=== PATIENT | male | born 1940 | race Caucasian/White ===

== ENCOUNTER 2018-09-24 11:41 | Inpatient (IN) | payer MEDICARE, OTHER ==
[~2018-09-24] VITALS: Ht 182.9 cm; Wt 116.2 kg
--- NOTE | 2018-09-24 13:06 | RAD ---
CT HEAD AND CERVICAL SPINE without contrast Clinical indications: Head injury. COMPARISON: July 31, [address] Technique: Noncontrast axial cross sectional scanning of the head was performed. PQRS compliance Statement One or more of the following individualized dose reduction techniques were utilized for this study: 1. Automated exposure control 2. Adjustment of the mA and/or kV according to patient size 3. Use of iterative reconstruction technique Findings: No acute intracranial hemorrhage or midline shift or mass-effect or hydrocephalus or extra-axial fluid collection is seen. Mild bilateral periventricular white matter hypodensity is seen consistent with chronic small vessel ischemic disease in this age group. No skull fracture or pneumocephalus is seen. No opacification of the mastoid sinuses or the paranasal sinuses is seen. The maxillary sinuses are not completely seen in this study. Soft tissue swelling is seen within the posterior right parietal region. Impression: No acute intracranial abnormality is seen. NONCONTRAST CERVICAL SPINE CT TECHNIQUE: Noncontrast helical CT scanning of the cervical spine was performed. Multiplanar 2-D reconstructions were generated. FINDINGS: No acute fracture or discitis or lytic process is evident. Degenerative endplate spurring and disc space narrowing and degenerative facet arthropathy is seen throughout the cervical spine. No perching of facet joints is seen. IMPRESSION: No acute fracture. Degenerative cervical spondylosis. Electronically signed by: Donaldo Lanza MD (09/24/2018 1:01 PM) [place] [id number]
--- NOTE | 2018-09-24 13:11 | RAD ---
PQRS Compliance Statement: One or more of the following individualized dose reduction techniques were utilized for this examination: 1. Automated exposure control 2. Adjustment of the mA and/or kV according to patient size 3. Use of iterative reconstruction technique CT PELVIS WO CONTRAST Clinical Indication: FALL, pain Comparison: None. TECHNIQUE: Helical CT imaging of the pelvis is performed without IV contrast. Findings: There is lower lumbar facet hypertrophy. No acute hip fracture is seen. There is no acute pelvic fracture. There is degenerative arthropathy of the hips. Severe disc space narrowing of L5/S1. Small exophytic cyst lower pole right kidney. The appendix is normal. Urinary bladder is normal. Prostate is moderately enlarged. No pelvic free fluid. There are fat containing bilateral inguinal hernias. There are benign inguinal lymph nodes bilaterally. No acute intramuscular hematoma is identified. Subcutaneous fat of the lateral hips is partially outside of [id number]. IMPRESSION: No acute pelvic or hip fracture. Electronically signed by: Олег Rincon MD (09/24/2018 1:06 PM) [id number]
--- NOTE | 2018-09-24 13:16 | EKG ---
[facility] [address] [place] [address] Test Date: 2018-09-24 Test Time: 11:57:37 Pat Name: LINETTE CARDOZA Department: Room: Gender: M Director Corporate Communications: : 1940 Requested By: HIEN DURANT Order Number: [id number] Reading MD: Dariel Bui Measurements Intervals [place] Rate: 57 P: CT: QRS: -51 QRSD: 174 T: 21 QT: 462 QTc: 453 Interpretive Statements ATRIAL FLUTTER ABNORMAL LEFT AXIS DEVIATION LEFT ANTERIOR FASCICULAR BLOCK RIGHT BUNDLE BRANCH BLOCK ABNORMAL ECG Electronically Signed On 09-30-2018 9:33:15 [employer] by Dariel Bui
[2018-09-24 13:30] LABS: CALCIUM 8.8 mg/dL (8.5-10.1); CREATININE 0.7 mg/dL (0.7-1.3); GFR 109.1; POTASSIUM 4.1 mmol/L (3.5-5.1)
[2018-09-24 13:31] LABS: BASO % 1 % (0-3); EOS % 0 % (0-3); HEMATOCRIT 38.3 % (39.0-53.0); HEMOGLOBIN 12.4 g/dL (13.0-17.5); LYMPH # 0.3 x10^3/uL (1.0-4.8); LYMPH % 4 % (24-48); MEAN CORPUSCULAR HEMOGLOBIN 28 pg (25-35); MEAN CORPUSCULAR HGB CONC 32 g/dL (31-37); MEAN CORPUSCULAR VOLUME 88 fL (79-100); MONO # 0.3 x10^3/uL (0.0-1.1); MONO % 4 % (0-9); NEUT # 7.8 x10^3uL (1.8-7.7); NEUT % 92 % (31-73); PLATELET COUNT 186 x10^3/uL (140-400); RED BLOOD COUNT 4.37 x10^6/uL (4.30-5.70); RED CELL DISTRIBUTION WIDTH 14.2 % (11.5-14.5); WHITE BLOOD COUNT 8.5 x10^3/uL (4.0-11.0)
[2018-09-24 13:37] LABS: ALBUMIN 3.7 g/dL (3.4-5.0); DIRECT BILIRUBIN 0.2 mg/dL (0.0-0.2); TOTAL BILIRUBIN 0.7 mg/dL (0.2-1.0); TOTAL PROTEIN 6.8 g/dL (6.4-8.2)
[2018-09-24 14:11] LABS: % BANDS 1 % (0-9); % LYMPHS 6 % (24-48); % MONOS 3 % (0-10); % SEGS 90 % (35-66)
[2018-09-24 14:12] LABS: PLT ESTIMATE ADEQUATE (ADEQUATE)
[2018-09-24 15:40] LABS: BILIRUBIN,URINE NEGATIVE (NEG); CLARITY,URINE CLEAR; COLOR,URINE YELLOW; NITRITE,URINE NEGATIVE (NEG); PH,URINE 6.5; PROTEIN,URINE NEGATIVE (NEG-TRACE)
[2018-09-24 15:47] LABS: BACTERIA,URINE 0 /HPF (0-FEW); SQUAMOUS EPITHELIAL CELL,UR FEW /LPF
[2018-09-24] MEDS ORDERED: ONDANSETRON PF 4 MG/2 ML VIAL. IV PRN (17:45)
--- NOTE | 2018-09-24 19:24 | PHYS DOC ---
Past Medical History Past Medical History: Dementia, Diabetes-Type II, GERD, High Cholesterol, Hypertension, Other Additional Past Medical Histor: ALZHEIMER'S DISEASE Past Surgical History: Other Additional Past Surgical Histo: L FEMUR TUMOR/SKIN CA'S REMOVED Alcohol Use: Rarely Drug Use: None Adult General Chief Complaint Chief Complaint: MECHANICAL FALL HPI HPI 70-year-old male presented to the emergency department after falling in time last night. The patient was seen last night before bed around 10:00 which was last known well. He has a history of Alzheimer's diabetes and hypertension. His found him this morning on the floor unable to get up. He was awake and alert at that time. He is at baseline confused and unable to provide a good history. Review of systems is negative for chest pain shortness of breath abdominal pain hip pain. All other review of systems is negative unless otherwise noted in history of present illness. ED course: 30-year-old male presenting the emergency department after sustaining a fall. No obvious injuries on arrival. Vital signs are unremarkable. Baseline mental status with a normal neurologic exam otherwise. Head neck and CT of the pelvis were negative for acute fractures or dislocations. CBC shows mild anemia. Chemistry panel shows mild elevation in proBNP. Troponin is within range of normal. Urinalysis is negative for infection. Patient is deconditioned from chronic mental state. We will admit the patient for rehabilitation physical therapy and occupational therapy and placement. I spoke with Dr. Carbajal who accepts patient for admission. Review of Systems Review of Systems SEE ABOVE. Current Medications Current Medications Current Medications Medications (Trade) Dose Ordered Sig/Azam Start Time Stop Time Status Last Admin Dose Admin Ondansetron HCl (Zofran) 4 mg PRN Q8HRS PRN 09/24/18 17:45 09/25/18 17:44 Sodium Chloride 1,000 ml @ 100 mls/hr Q10H 09/24/18 17:37 09/25/18 17:36 Allergies Allergies Allergies Coded Allergies Type Severity Reaction Last Updated Verified morphine Allergy Intermediate 09/24/18 Yes Physical Exam Physical Exam SEE ABOVE Constitutional: Well developed, well nourished, no acute distress, non-toxic appearance. [] HENT: Normocephalic, atraumatic, bilateral external ears normal, oropharynx moist, no oral exudates, nose normal. [] Eyes: PERRLA, EOMI, conjunctiva normal, no discharge. [] Neck: Normal range of motion, no tenderness, supple, no stridor. [] Cardiovascular:Heart rate regular rhythm, no murmur [] Lungs & Thorax: Bilateral breath sounds clear to auscultation [] Abdomen: Bowel sounds normal, soft, no tenderness, no masses, no pulsatile masses. [] Skin: Warm, dry, no erythema, no rash. [] Back: No tenderness, no CVA tenderness. [] Extremities: No tenderness, no cyanosis, no clubbing, ROM intact, no edema. No pain with passive range of motion of the hips. Neurologic: Mental status: Awake not oriented which is baseline Cranial nerves: Extraocular movements intact, eyebrows marisol bilaterally, smile symmetric, uvula elevation nl, shoulder shrug intact bilaterally, tongue protrusion normal DTRs: 2+ Sensation: equal and normal in all extremities Strength: 5/5 in upper and lower extremities bilaterally Psychologic: Affect normal, judgement normal, mood normal. [] Current Patient Data Vital Signs Vital Signs Date Time Temp Pulse Resp B/P (MAP) Pulse Ox O2 Delivery O2 Flow Rate FiO2 09/24/18 11:41 97.8 54 20 166/73 (104) 98 Room Air 97.8 Lab Values Laboratory Tests Test 09/24/18 13:10 09/24/18 15:25 White Blood Count 8.5 x10^3/uL (4.0-11.0) Red Blood Count 4.37 x10^6/uL (4.30-5.70) Hemoglobin 12.4 g/dL (13.0-17.5) L Hematocrit 38.3 % (39.0-53.0) L Mean Corpuscular Volume 88 fL (79-100) Mean Corpuscular Hemoglobin 28 pg (25-35) Mean Corpuscular Hemoglobin Concent 32 g/dL (31-37) Red Cell Distribution Width 14.2 % (11.5-14.5) Platelet Count 186 x10^3/uL (140-400) Neutrophils (%) (Auto) 92 % (31-73) H Lymphocytes (%) (Auto) 4 % (24-48) L Monocytes (%) (Auto) 4 % (0-9) Eosinophils (%) (Auto) 0 % (0-3) Basophils (%) (Auto) 1 % (0-3) Neutrophils # (Auto) 7.8 x10^3uL (1.8-7.7) H Lymphocytes # (Auto) 0.3 x10^3/uL (1.0-4.8) L Monocytes # (Auto) 0.3 x10^3/uL (0.0-1.1) Eosinophils # (Auto) 0.0 x10^3/uL (0.0-0.7) Basophils # (Auto) 0.0 x10^3/uL (0.0-0.2) Segmented Neutrophils % 90 % (35-66) H Band Neutrophils % 1 % (0-9) Lymphocytes % 6 % (24-48) L Monocytes % 3 % (0-10) Platelet Estimate Adequate (ADEQUATE) Sodium Level 141 mmol/L (136-145) Potassium Level 4.1 mmol/L (3.5-5.1) Chloride Level 101 mmol/L (98-107) Carbon Dioxide Level 31 mmol/L (21-32) Anion Gap 9 (6-14) Blood Urea Nitrogen 14 mg/dL (8-26) Creatinine 0.7 mg/dL (0.7-1.3) Estimated GFR (Cockcroft-Gault) 109.1 Glucose Level 199 mg/dL (70-99) H Calcium Level 8.8 mg/dL (8.5-10.1) Total Bilirubin 0.7 mg/dL (0.2-1.0) Direct Bilirubin 0.2 mg/dL (0.0-0.2) Aspartate Amino Transferase (AST) 19 U/L (15-37) Alanine Aminotransferase (ALT) 20 U/L (16-63) Alkaline Phosphatase 83 U/L (46-116) Troponin I Quantitative 0.035 ng/mL (0.000-0.055) IB-Nvs-V-Type Natriuretic Peptide 1467 pg/mL (0-449) H Total Protein 6.8 g/dL (6.4-8.2) Albumin 3.7 g/dL (3.4-5.0) Lipase 98 U/L (73-393) Urine Collection Type Unknown Urine Color Yellow Urine Clarity Clear Urine pH 6.5 Urine Specific [place] 1.020 Urine Protein Negative mg/dL (NEG-TRACE) Urine Glucose (UA) 100 mg/dL (NEG) Urine Ketones (Stick) 40 mg/dL (NEG) Urine Blood Negative (NEG) Urine Nitrite Negative (NEG) Urine Bilirubin Negative (NEG) Urine Urobilinogen Dipstick 1.0 mg/dL (0.2 mg/dL) Urine Leukocyte Esterase Negative (NEG) Urine RBC 1-2 /HPF (0-2) Urine WBC 1-4 /HPF (0-4) Urine Squamous Epithelial Cells Few /LPF Urine Bacteria 0 /HPF (0-FEW) Urine Mucus Mod /LPF Laboratory Tests 09/24/18 13:10 Laboratory Tests 09/24/18 13:10 EKG EKG [] Radiology/Procedures Radiology/Procedures [] Course & Med Decision Making Course & Med Decision Making Pertinent Labs and Imaging studies reviewed. (See chart for details) [] Dragon Disclaimer Dragon Disclaimer This electronic medical record was generated, in whole or in part, using a voice recognition dictation system. Departure Departure Impression: Primary Impression: Fall Additional Impression: Generalized weakness Disposition: ADMITTED INPATIENT Admitting Physician: Other (riffel) Condition: STABLE Referrals: BELINDA FOX MD (PCP) Problem Qualifiers HIEN DURANT MD Sep 24, 2018 19:24
[2018-09-24] MEDS ORDERED: ASPI-630 PO (19:26)
[2018-09-24] MEDS ORDERED: DEXT1TAB3 PO (19:26)
[2018-09-24] MEDS ORDERED: OMEG1CAP6 PO (19:26)
[2018-09-24] MEDS ORDERED: BYSTOLIC5 MG PO (19:26)
[2018-09-24] MEDS ORDERED: METF500T16 PO (19:26)
[2018-09-24] MEDS ORDERED: LOSA100T14 PO (19:26)
[2018-09-24] MEDS ORDERED: LISI-130 PO (19:26)
[2018-09-24] MEDS ORDERED: MEMA10TA PO (19:26)
[2018-09-24] MEDS ORDERED: DOXA4TAB3 PO (19:26)
[2018-09-24] MEDS ORDERED: FINA5TAB4 PO (19:26)
[2018-09-24] MEDS ORDERED: MULT1TAB52 PO (19:26)
[2018-09-24] MEDS ORDERED: DONE10TA7 PO (19:26)
[2018-09-24] MEDS ORDERED: SERT100T PO (19:26)
[2018-09-24] MEDS ORDERED: LOSA-73 PO (19:26)
[2018-09-24] MEDS ORDERED: GLYB5TAB3 PO (19:26)
[2018-09-24] MEDS ORDERED: LORA1TAB PO (19:26)
--- NOTE | 2018-09-24 22:00 | NUR ---
The patient, LINETTE CARDOZA, 78 y/o, M admitted by LINNEA OCASIO MD, was given written information regarding hospital policies, unit procedures and contact persons. Valuables were checked and left with him.
[2018-09-24] MEDS: IV NORMAL SALINE 1000ML BAG 1,000 ML IV SCH (22:33)
[2018-09-24 22:34] VITALS: BP 193/75
[2018-09-24 22:36] VITALS: BP 193/75
--- NOTE | 2018-09-24 23:36 | PDOC1 ---
History and Physical Date of Admission Date of Admission DATE: 09/24/18 TIME: 23:34 Identification/Chief Complaint Chief Complaint Fall at home Source Source: Caregiver, Chart review, Patient History of Present Illness History of Present Illness 70-year-old male w/ PMHx HTN, DM, Alzheimer dementia presented to the ED after falling at home last night. The patient was seen last night before bed around 10:00pm. His found him this morning on the floor unable to get up. He was awake and alert at that time. He is at baseline confused and unable to provide any history. He is also accompanied by his PCP. Head neck and CT of the pelvis were negative for acute fractures or dislocations. CBC shows mild anemia. Chemistry panel shows mild elevation in proBNP. Troponin is within range of normal. Urinalysis is negative for infection. Abnormal telemetry noted and EKG performed notable for new onset atrial flutter at slow rate. His , bedside is distressed and upset. Past Medical History Cardiovascular: No pertinent hx, HTN Pulmonary: No pertinent hx CENTRAL NERVOUS SYSTEM: Dementia GI: No pertinent hx Heme/Onc: No pertinent hx Hepatobiliary: No pertinent hx Psych: Other (Alzheimer) Rheumatologic: No pertinent hx Infectious disease: No pertinent hx ENT: No pertinent hx Renal/: No pertinent hx Endocrine: Diabetes Dermatology: No pertinent hx Past Surgical History Past Surgical History: No pertinent history Family History Family History: Alzheimer's Disease, Diabetes, Hypertension Social History Smoke: No ALCOHOL: none Drugs: None Current Problem List Problem List Problems Medical Problems: (1) Fall Status: Acute (2) Generalized weakness Status: Acute Current Medications Current Medications Current Medications Ondansetron HCl (Zofran) 4 mg PRN Q8HRS PRN IV NAUSEA/VOMITING Last administered on 09/24/18at 22:33; Start 09/24/18 at 17:45; Stop 09/25/18 at 17:44 Sodium Chloride 1,000 ml @ 100 mls/hr Q10H IV Last administered on 09/24/18at 22:33; Start 09/24/18 at 17:37; Stop 09/25/18 at 17:36 Active Scripts Active Reported Coricidin Hbp Cough & Cold Tab (Dextromethorphan Hbr/Chlor-Mal) 1 Each Tablet 1 Each PO Aspirin 81 Mg Tab.chew 1 Tab PO HS Multivitamins (Multivitamin) 1 Each Tablet 1 Tab PO DAILY Fish Oil 1,000 Mg Capsule ([place]-3 Fatty Acids/Fish Oil) 1 Each Capsule 1 Each PO HS Losartan Potassium 100 Mg Tablet 100 Mg PO BID Losartan Potassium 50 Mg Tablet 50 Mg PO DAILY Zoloft (Sertraline Hcl) 100 Mg Tablet 1 Tab PO BID Zoloft (Sertraline Hcl) 100 Mg Tablet 100 Mg PO BID Finasteride 5 Mg Tablet 5 Mg PO HS Doxazosin Mesylate 4 Mg Tablet 4 Mg PO HS Namenda (Memantine Hcl) 10 Mg Tablet 10 Mg PO BID Donepezil Hcl 10 Mg Tablet 10 Mg PO HS Bystolic (Nebivolol) 5 Mg Tablet 5 Mg PO DAILY Glyburide 5 Mg Tablet 1 Tab PO BID Metformin Hcl 500 Mg Tablet 500 Mg PO BIDWMEALS Lisinopril 40 Mg Tablet 40 Mg PO BID Lorazepam 1 Mg Tablet 1 Tab PO TID Allergies Allergies: Coded Allergies: morphine (Verified Allergy, Intermediate, 09/24/18) ROS Review of System Unable to obtain due to dementia Physical Exam General: Alert, Cooperative, No acute distress HEENT: Atraumatic, PERRLA, EOMI, Mucous membr. moist/pink Lungs: Clear to auscultation, Normal air movement Heart: S1S2, irregularly irregular Abdomen: Normal bowel sounds, Soft, No tenderness, No hepatosplenomegaly, No masses Rectal Exam: not examined Extremities: No clubbing, No cyanosis, No edema, Normal pulses, No tenderness/ swelling Skin: No rashes, No breakdown, No significant lesion Neuro: Normal gait, Normal speech, Strength at 5/5 X4 ext, Normal tone, Sensation intact, Cranial nerves 3-12 NL, Reflexes 2+ Psych/Mental Status: Mood NL Vitals Vitals Vital Signs Date Time Temp Pulse Resp B/P (MAP) Pulse Ox O2 Delivery O2 Flow Rate FiO2 09/24/18 22:36 97.6 56 18 193/75 (114) 94 Room Air 97.6 Labs Labs Laboratory Tests Test 09/24/18 13:10 09/24/18 15:25 White Blood Count 8.5 x10^3/uL (4.0-11.0) Red Blood Count 4.37 x10^6/uL (4.30-5.70) Hemoglobin 12.4 g/dL (13.0-17.5) Hematocrit 38.3 % (39.0-53.0) Mean Corpuscular Volume 88 fL (79-100) Mean Corpuscular Hemoglobin 28 pg (25-35) Mean Corpuscular Hemoglobin Concent 32 g/dL (31-37) Red Cell Distribution Width 14.2 % (11.5-14.5) Platelet Count 186 x10^3/uL (140-400) Neutrophils (%) (Auto) 92 % (31-73) Lymphocytes (%) (Auto) 4 % (24-48) Monocytes (%) (Auto) 4 % (0-9) Eosinophils (%) (Auto) 0 % (0-3) Basophils (%) (Auto) 1 % (0-3) Neutrophils # (Auto) 7.8 x10^3uL (1.8-7.7) Lymphocytes # (Auto) 0.3 x10^3/uL (1.0-4.8) Monocytes # (Auto) 0.3 x10^3/uL (0.0-1.1) Eosinophils # (Auto) 0.0 x10^3/uL (0.0-0.7) Basophils # (Auto) 0.0 x10^3/uL (0.0-0.2) Segmented Neutrophils % 90 % (35-66) Band Neutrophils % 1 % (0-9) Lymphocytes % 6 % (24-48) Monocytes % 3 % (0-10) Platelet Estimate Adequate (ADEQUATE) Sodium Level 141 mmol/L (136-145) Potassium Level 4.1 mmol/L (3.5-5.1) Chloride Level 101 mmol/L (98-107) Carbon Dioxide Level 31 mmol/L (21-32) Anion Gap 9 (6-14) Blood Urea Nitrogen 14 mg/dL (8-26) Creatinine 0.7 mg/dL (0.7-1.3) Estimated GFR (Cockcroft-Gault) 109.1 Glucose Level 199 mg/dL (70-99) Calcium Level 8.8 mg/dL (8.5-10.1) Total Bilirubin 0.7 mg/dL (0.2-1.0) Direct Bilirubin 0.2 mg/dL (0.0-0.2) Aspartate Amino Transf (AST/SGOT) 19 U/L (15-37) Alanine Aminotransferase (ALT/SGPT) 20 U/L (16-63) Alkaline Phosphatase 83 U/L (46-116) Troponin I Quantitative 0.035 ng/mL (0.000-0.055) OQ-Jve-T-Type Natriuretic Peptide 1467 pg/mL (0-449) Total Protein 6.8 g/dL (6.4-8.2) Albumin 3.7 g/dL (3.4-5.0) Lipase 98 U/L (73-393) Urine Collection Type Unknown Urine Color Yellow Urine Clarity Clear Urine pH 6.5 Urine Specific [place] 1.020 Urine Protein Negative mg/dL (NEG-TRACE) Urine Glucose (UA) 100 mg/dL (NEG) Urine Ketones (Stick) 40 mg/dL (NEG) Urine Blood Negative (NEG) Urine Nitrite Negative (NEG) Urine Bilirubin Negative (NEG) Urine Urobilinogen Dipstick 1.0 mg/dL (0.2 mg/dL) Urine Leukocyte Esterase Negative (NEG) Urine RBC 1-2 /HPF (0-2) Urine WBC 1-4 /HPF (0-4) Urine Squamous Epithelial Cells Few /LPF Urine Bacteria 0 /HPF (0-FEW) Urine Mucus Mod /LPF Laboratory Tests Test 09/24/18 13:10 09/24/18 15:25 White Blood Count 8.5 x10^3/uL (4.0-11.0) Red Blood Count 4.37 x10^6/uL (4.30-5.70) Hemoglobin 12.4 g/dL (13.0-17.5) Hematocrit 38.3 % (39.0-53.0) Mean Corpuscular Volume 88 fL (79-100) Mean Corpuscular Hemoglobin 28 pg (25-35) Mean Corpuscular Hemoglobin Concent 32 g/dL (31-37) Red Cell Distribution Width 14.2 % (11.5-14.5) Platelet Count 186 x10^3/uL (140-400) Neutrophils (%) (Auto) 92 % (31-73) Lymphocytes (%) (Auto) 4 % (24-48) Monocytes (%) (Auto) 4 % (0-9) Eosinophils (%) (Auto) 0 % (0-3) Basophils (%) (Auto) 1 % (0-3) Neutrophils # (Auto) 7.8 x10^3uL (1.8-7.7) Lymphocytes # (Auto) 0.3 x10^3/uL (1.0-4.8) Monocytes # (Auto) 0.3 x10^3/uL (0.0-1.1) Eosinophils # (Auto) 0.0 x10^3/uL (0.0-0.7) Basophils # (Auto) 0.0 x10^3/uL (0.0-0.2) Segmented Neutrophils % 90 % (35-66) Band Neutrophils % 1 % (0-9) Lymphocytes % 6 % (24-48) Monocytes % 3 % (0-10) Platelet Estimate Adequate (ADEQUATE) Sodium Level 141 mmol/L (136-145) Potassium Level 4.1 mmol/L (3.5-5.1) Chloride Level 101 mmol/L (98-107) Carbon Dioxide Level 31 mmol/L (21-32) Anion Gap 9 (6-14) Blood Urea Nitrogen 14 mg/dL (8-26) Creatinine 0.7 mg/dL (0.7-1.3) Estimated GFR (Cockcroft-Gault) 109.1 Glucose Level 199 mg/dL (70-99) Calcium Level 8.8 mg/dL (8.5-10.1) Total Bilirubin 0.7 mg/dL (0.2-1.0) Direct Bilirubin 0.2 mg/dL (0.0-0.2) Aspartate Amino Transf (AST/SGOT) 19 U/L (15-37) Alanine Aminotransferase (ALT/SGPT) 20 U/L (16-63) Alkaline Phosphatase 83 U/L (46-116) Troponin I Quantitative 0.035 ng/mL (0.000-0.055) PF-Lej-I-Type Natriuretic Peptide 1467 pg/mL (0-449) Total Protein 6.8 g/dL (6.4-8.2) Albumin 3.7 g/dL (3.4-5.0) Lipase 98 U/L (73-393) Urine Collection Type Unknown Urine Color Yellow Urine Clarity Clear Urine pH 6.5 Urine Specific [place] 1.020 Urine Protein Negative mg/dL (NEG-TRACE) Urine Glucose (UA) 100 mg/dL (NEG) Urine Ketones (Stick) 40 mg/dL (NEG) Urine Blood Negative (NEG) Urine Nitrite Negative (NEG) Urine Bilirubin Negative (NEG) Urine Urobilinogen Dipstick 1.0 mg/dL (0.2 mg/dL) Urine Leukocyte Esterase Negative (NEG) Urine RBC 1-2 /HPF (0-2) Urine WBC 1-4 /HPF (0-4) Urine Squamous Epithelial Cells Few /LPF Urine Bacteria 0 /HPF (0-FEW) Urine Mucus Mod /LPF Images Images CT head - No acute intracranial abnormality is seen. VTE Prophylaxis Ordered VTE Prophylaxis Devices: No VTE Pharmacological Prophylaxi: Yes Assessment/Plan Assessment/Plan A/P: Vomiting - possibly secondary to eating multiple different foods, no other sick contacts, likely this was a toxic gastroenteritis. Nausea control Fall at home - negative trauma series. Could be secondary to newfound arrhythmia. Will consult PT/OT and cardiology. No focal neuro deficits Aflutter - new, rate control. With his fall he is high risk for anticoagulation. Will consult cardiology for further recs Alzheimer dementia - with his falls probably should consider stopping aricept. Namenda only. He is fairly progressed, nearly non-verbal, but still eating quite a bit. DM2 - will hold his metformin and glipizide while in house, change to insulin for now HTN - cont home meds, will watch closely, may be able to back off some considering his falls FEN - ADA diet PPX - SCDs DNR/DNI Inpatient for frequently falls at home and new cardiac arrhythmia. Will need at least 2 midnights of inpatient care and I suspect he will need skilled placement on discharge. LINNEA OCASIO MD Sep 24, 2018 23:36
[2018-09-24] MEDS ORDERED: DEXTROSE 50% 25 GM / 50ML DISP.SYRIN. IV PRN (23:45)
[2018-09-25 03:00] VITALS: BP 120/45
[2018-09-25 05:15] LABS: BASO % 0 % (0-3); EOS % 1 % (0-3); HEMATOCRIT 35.4 % (39.0-53.0); HEMOGLOBIN 11.6 g/dL (13.0-17.5); LYMPH # 0.9 x10^3/uL (1.0-4.8); LYMPH % 12 % (24-48); MEAN CORPUSCULAR HEMOGLOBIN 29 pg (25-35); MEAN CORPUSCULAR HGB CONC 33 g/dL (31-37); MEAN CORPUSCULAR VOLUME 87 fL (79-100); MONO # 0.4 x10^3/uL (0.0-1.1); MONO % 6 % (0-9); NEUT # 6.1 x10^3uL (1.8-7.7); NEUT % 82 % (31-73); PLATELET COUNT 181 x10^3/uL (140-400); RED BLOOD COUNT 4.05 x10^6/uL (4.30-5.70); RED CELL DISTRIBUTION WIDTH 14.2 % (11.5-14.5); WHITE BLOOD COUNT 7.5 x10^3/uL (4.0-11.0)
[2018-09-25 05:38] LABS: CALCIUM 8.9 mg/dL (8.5-10.1); CREATININE 0.7 mg/dL (0.7-1.3); GFR 109.1; POTASSIUM 3.6 mmol/L (3.5-5.1)
[2018-09-25] MEDS: INSULIN LISPRO 300 UNITS/3 ML INSULN.PEN. SQ SCH ×5 (05:40→21:00)
[2018-09-25 07:13] VITALS: BP 194/77
[2018-09-25] MEDS: IV NORMAL SALINE 1000ML BAG 1,000 ML IV SCH ×2 (08:03→17:15)
--- NOTE | 2018-09-25 08:14 | EKG ---
[facility] [address] [place] [address] Test Date: 2018-09-25 Test Time: 08:08:37 Pat Name: LINETTE CARDOZA Department: Room: 506 1 Gender: M Pet Groomer: : 1940 Requested By: JUN FAROOQ Order Number: [id number] Reading MD: Dariel Bui Measurements Intervals [place] Rate: 63 P: [place]: QRS: -50 QRSD: 172 T: 19 QT: 478 QTc: 493 Interpretive Statements SINUS RHYTHM VENTRICULAR PREMATURE COMPLEX(ES) ABNORMAL LEFT AXIS DEVIATION LEFT ANTERIOR FASCICULAR BLOCK RIGHT BUNDLE BRANCH BLOCK ABNORMAL ECG Electronically Signed On 09-30-2018 9:53:13 [employer] OPERATOR by Dariel Bui
[2018-09-25] MEDS: NYSTATIN TOPICAL POWDER 15GM BOTTLE. TP SCH ×2 (08:59→21:00)
[2018-09-25] MEDS ORDERED: METOPROLOL TART IMMED RELEASE 25 MG TABLET. PO SCH (09:00)
--- NOTE | 2018-09-25 10:17 | PDOC ---
PROGRESS NOTES Chief Complaint Chief Complaint nausea and Vomiting - improved weakness and debility, Fall at home - PT/OT Aflutter - new, rate control. With his fall he is high risk for anticoagulation. Will consult cardiology for further recs Alzheimer dementia - acute on chronic encephalopathy, confusion with symptoms DM2 - HTN - History of Present Illness History of Present Illness confused earlier calm now will try clear liquid diet discussed with 10:10 am Vitals Vitals Vital Signs Date Time Temp Pulse Resp B/P (MAP) Pulse Ox O2 Delivery O2 Flow Rate FiO2 09/25/18 08:00 Room Air 09/25/18 07:13 98.6 54 20 194/77 (116) 92.0 98.6 09/25/18 03:00 96 Physical Exam Physical Exam sleeping hard, easily aroused General: Alert, Cooperative, No acute distress Abdomen: Normal bowel sounds, Soft, No tenderness, No hepatosplenomegaly, No masses Extremities: No clubbing, No cyanosis, No edema, Normal pulses, No tenderness/ swelling Skin: No rashes, No breakdown, No significant lesion Labs LABS Laboratory Tests Test 09/24/18 13:10 09/24/18 15:25 09/25/18 00:40 09/25/18 04:50 White Blood Count 8.5 x10^3/uL (4.0-11.0) 7.5 x10^3/uL (4.0-11.0) Red Blood Count 4.37 x10^6/uL (4.30-5.70) 4.05 x10^6/uL (4.30-5.70) Hemoglobin 12.4 g/dL (13.0-17.5) 11.6 g/dL (13.0-17.5) Hematocrit 38.3 % (39.0-53.0) 35.4 % (39.0-53.0) Mean Corpuscular Volume 88 fL (79-100) 87 fL (79-100) Mean Corpuscular Hemoglobin 28 pg (25-35) 29 pg (25-35) Mean Corpuscular Hemoglobin Concent 32 g/dL (31-37) 33 g/dL (31-37) Red Cell Distribution Width 14.2 % (11.5-14.5) 14.2 % (11.5-14.5) Platelet Count 186 x10^3/uL (140-400) 181 x10^3/uL (140-400) Neutrophils (%) (Auto) 92 % (31-73) 82 % (31-73) Lymphocytes (%) (Auto) 4 % (24-48) 12 % (24-48) Monocytes (%) (Auto) 4 % (0-9) 6 % (0-9) Eosinophils (%) (Auto) 0 % (0-3) 1 % (0-3) Basophils (%) (Auto) 1 % (0-3) 0 % (0-3) Neutrophils # (Auto) 7.8 x10^3uL (1.8-7.7) 6.1 x10^3uL (1.8-7.7) Lymphocytes # (Auto) 0.3 x10^3/uL (1.0-4.8) 0.9 x10^3/uL (1.0-4.8) Monocytes # (Auto) 0.3 x10^3/uL (0.0-1.1) 0.4 x10^3/uL (0.0-1.1) Eosinophils # (Auto) 0.0 x10^3/uL (0.0-0.7) 0.0 x10^3/uL (0.0-0.7) Basophils # (Auto) 0.0 x10^3/uL (0.0-0.2) 0.0 x10^3/uL (0.0-0.2) Segmented Neutrophils % 90 % (35-66) Band Neutrophils % 1 % (0-9) Lymphocytes % 6 % (24-48) Monocytes % 3 % (0-10) Platelet Estimate Adequate (ADEQUATE) Sodium Level 141 mmol/L (136-145) 143 mmol/L (136-145) Potassium Level 4.1 mmol/L (3.5-5.1) 3.6 mmol/L (3.5-5.1) Chloride Level 101 mmol/L (98-107) 106 mmol/L (98-107) Carbon Dioxide Level 31 mmol/L (21-32) 31 mmol/L (21-32) Anion Gap 9 (6-14) 6 (6-14) Blood Urea Nitrogen 14 mg/dL (8-26) 13 mg/dL (8-26) Creatinine 0.7 mg/dL (0.7-1.3) 0.7 mg/dL (0.7-1.3) Estimated GFR (Cockcroft-Gault) 109.1 109.1 Glucose Level 199 mg/dL (70-99) 140 mg/dL (70-99) Calcium Level 8.8 mg/dL (8.5-10.1) 8.9 mg/dL (8.5-10.1) Total Bilirubin 0.7 mg/dL (0.2-1.0) Direct Bilirubin 0.2 mg/dL (0.0-0.2) Aspartate Amino Transf (AST/SGOT) 19 U/L (15-37) Alanine Aminotransferase (ALT/SGPT) 20 U/L (16-63) Alkaline Phosphatase 83 U/L (46-116) Troponin I Quantitative 0.035 ng/mL (0.000-0.055) TY-Cdv-[id number]-Type Natriuretic Peptide 1467 pg/mL (0-449) Total Protein 6.8 g/dL (6.4-8.2) Albumin 3.7 g/dL (3.4-5.0) Lipase 98 U/L (73-393) Urine Collection Type Unknown Urine Color Yellow Urine Clarity Clear Urine pH 6.5 Urine Specific [place] 1.020 Urine Protein Negative mg/dL (NEG-TRACE) Urine Glucose (UA) 100 mg/dL (NEG) Urine Ketones (Stick) 40 mg/dL (NEG) Urine Blood Negative (NEG) Urine Nitrite Negative (NEG) Urine Bilirubin Negative (NEG) Urine Urobilinogen Dipstick 1.0 mg/dL (0.2 mg/dL) Urine Leukocyte Esterase Negative (NEG) Urine RBC 1-2 /HPF (0-2) Urine WBC 1-4 /HPF (0-4) Urine Squamous Epithelial Cells Few /LPF Urine Bacteria 0 /HPF (0-FEW) Urine Mucus Mod /LPF Glucose (Fingerstick) 128 mg/dL (70-99) Test 09/25/18 05:37 Glucose (Fingerstick) 115 mg/dL (70-99) Review of Systems Review of Systems calm sleepy, Assessment and Plan Assessmemt and Plan Problems Medical Problems: (1) Fall Status: Acute (2) Generalized weakness Status: Acute Comment Review of Relevant I have reviewed the following items randolph (where applicable) has been applied. Labs Laboratory Tests Test 09/24/18 13:10 09/24/18 15:25 09/25/18 00:40 09/25/18 04:50 White Blood Count 8.5 x10^3/uL (4.0-11.0) 7.5 x10^3/uL (4.0-11.0) Red Blood Count 4.37 x10^6/uL (4.30-5.70) 4.05 x10^6/uL (4.30-5.70) Hemoglobin 12.4 g/dL (13.0-17.5) 11.6 g/dL (13.0-17.5) Hematocrit 38.3 % (39.0-53.0) 35.4 % (39.0-53.0) Mean Corpuscular Volume 88 fL (79-100) 87 fL (79-100) Mean Corpuscular Hemoglobin 28 pg (25-35) 29 pg (25-35) Mean Corpuscular Hemoglobin Concent 32 g/dL (31-37) 33 g/dL (31-37) Red Cell Distribution Width 14.2 % (11.5-14.5) 14.2 % (11.5-14.5) Platelet Count 186 x10^3/uL (140-400) 181 x10^3/uL (140-400) Neutrophils (%) (Auto) 92 % (31-73) 82 % (31-73) Lymphocytes (%) (Auto) 4 % (24-48) 12 % (24-48) Monocytes (%) (Auto) 4 % (0-9) 6 % (0-9) Eosinophils (%) (Auto) 0 % (0-3) 1 % (0-3) Basophils (%) (Auto) 1 % (0-3) 0 % (0-3) Neutrophils # (Auto) 7.8 x10^3uL (1.8-7.7) 6.1 x10^3uL (1.8-7.7) Lymphocytes # (Auto) 0.3 x10^3/uL (1.0-4.8) 0.9 x10^3/uL (1.0-4.8) Monocytes # (Auto) 0.3 x10^3/uL (0.0-1.1) 0.4 x10^3/uL (0.0-1.1) Eosinophils # (Auto) 0.0 x10^3/uL (0.0-0.7) 0.0 x10^3/uL (0.0-0.7) Basophils # (Auto) 0.0 x10^3/uL (0.0-0.2) 0.0 x10^3/uL (0.0-0.2) Segmented Neutrophils % 90 % (35-66) Band Neutrophils % 1 % (0-9) Lymphocytes % 6 % (24-48) Monocytes % 3 % (0-10) Platelet Estimate Adequate (ADEQUATE) Sodium Level 141 mmol/L (136-145) 143 mmol/L (136-145) Potassium Level 4.1 mmol/L (3.5-5.1) 3.6 mmol/L (3.5-5.1) Chloride Level 101 mmol/L (98-107) 106 mmol/L (98-107) Carbon Dioxide Level 31 mmol/L (21-32) 31 mmol/L (21-32) Anion Gap 9 (6-14) 6 (6-14) Blood Urea Nitrogen 14 mg/dL (8-26) 13 mg/dL (8-26) Creatinine 0.7 mg/dL (0.7-1.3) 0.7 mg/dL (0.7-1.3) Estimated GFR (Cockcroft-Gault) 109.1 109.1 Glucose Level 199 mg/dL (70-99) 140 mg/dL (70-99) Calcium Level 8.8 mg/dL (8.5-10.1) 8.9 mg/dL (8.5-10.1) Total Bilirubin 0.7 mg/dL (0.2-1.0) Direct Bilirubin 0.2 mg/dL (0.0-0.2) Aspartate Amino Transf (AST/SGOT) 19 U/L (15-37) Alanine Aminotransferase (ALT/SGPT) 20 U/L (16-63) Alkaline Phosphatase 83 U/L (46-116) Troponin I Quantitative 0.035 ng/mL (0.000-0.055) SK-Nlb-K-Type Natriuretic Peptide 1467 pg/mL (0-449) Total Protein 6.8 g/dL (6.4-8.2) Albumin 3.7 g/dL (3.4-5.0) Lipase 98 U/L (73-393) Urine Collection Type Unknown Urine Color Yellow Urine Clarity Clear Urine pH 6.5 Urine Specific [place] 1.020 Urine Protein Negative mg/dL (NEG-TRACE) Urine Glucose (UA) 100 mg/dL (NEG) Urine Ketones (Stick) 40 mg/dL (NEG) Urine Blood Negative (NEG) Urine Nitrite Negative (NEG) Urine Bilirubin Negative (NEG) Urine Urobilinogen Dipstick 1.0 mg/dL (0.2 mg/dL) Urine Leukocyte Esterase Negative (NEG) Urine RBC 1-2 /HPF (0-2) Urine WBC 1-4 /HPF (0-4) Urine Squamous Epithelial Cells Few /LPF Urine Bacteria 0 /HPF (0-FEW) Urine Mucus Mod /LPF Glucose (Fingerstick) 128 mg/dL (70-99) Test 09/25/18 05:37 Glucose (Fingerstick) 115 mg/dL (70-99) Laboratory Tests Test 09/24/18 13:10 09/24/18 15:25 09/25/18 00:40 09/25/18 04:50 White Blood Count 8.5 x10^3/uL (4.0-11.0) 7.5 x10^3/uL (4.0-11.0) Red Blood Count 4.37 x10^6/uL (4.30-5.70) 4.05 x10^6/uL (4.30-5.70) Hemoglobin 12.4 g/dL (13.0-17.5) 11.6 g/dL (13.0-17.5) Hematocrit 38.3 % (39.0-53.0) 35.4 % (39.0-53.0) Mean Corpuscular Volume 88 fL (79-100) 87 fL (79-100) Mean Corpuscular Hemoglobin 28 pg (25-35) 29 pg (25-35) Mean Corpuscular Hemoglobin Concent 32 g/dL (31-37) 33 g/dL (31-37) Red Cell Distribution Width 14.2 % (11.5-14.5) 14.2 % (11.5-14.5) Platelet Count 186 x10^3/uL (140-400) 181 x10^3/uL (140-400) Neutrophils (%) (Auto) 92 % (31-73) 82 % (31-73) Lymphocytes (%) (Auto) 4 % (24-48) 12 % (24-48) Monocytes (%) (Auto) 4 % (0-9) 6 % (0-9) Eosinophils (%) (Auto) 0 % (0-3) 1 % (0-3) Basophils (%) (Auto) 1 % (0-3) 0 % (0-3) Neutrophils # (Auto) 7.8 x10^3uL (1.8-7.7) 6.1 x10^3uL (1.8-7.7) Lymphocytes # (Auto) 0.3 x10^3/uL (1.0-4.8) 0.9 x10^3/uL (1.0-4.8) Monocytes # (Auto) 0.3 x10^3/uL (0.0-1.1) 0.4 x10^3/uL (0.0-1.1) Eosinophils # (Auto) 0.0 x10^3/uL (0.0-0.7) 0.0 x10^3/uL (0.0-0.7) Basophils # (Auto) 0.0 x10^3/uL (0.0-0.2) 0.0 x10^3/uL (0.0-0.2) Segmented Neutrophils % 90 % (35-66) Band Neutrophils % 1 % (0-9) Lymphocytes % 6 % (24-48) Monocytes % 3 % (0-10) Platelet Estimate Adequate (ADEQUATE) Sodium Level 141 mmol/L (136-145) 143 mmol/L (136-145) Potassium Level 4.1 mmol/L (3.5-5.1) 3.6 mmol/L (3.5-5.1) Chloride Level 101 mmol/L (98-107) 106 mmol/L (98-107) Carbon Dioxide Level 31 mmol/L (21-32) 31 mmol/L (21-32) Anion Gap 9 (6-14) 6 (6-14) Blood Urea Nitrogen 14 mg/dL (8-26) 13 mg/dL (8-26) Creatinine 0.7 mg/dL (0.7-1.3) 0.7 mg/dL (0.7-1.3) Estimated GFR (Cockcroft-Gault) 109.1 109.1 Glucose Level 199 mg/dL (70-99) 140 mg/dL (70-99) Calcium Level 8.8 mg/dL (8.5-10.1) 8.9 mg/dL (8.5-10.1) Total Bilirubin 0.7 mg/dL (0.2-1.0) Direct Bilirubin 0.2 mg/dL (0.0-0.2) Aspartate Amino Transf (AST/SGOT) 19 U/L (15-37) Alanine Aminotransferase (ALT/SGPT) 20 U/L (16-63) Alkaline Phosphatase 83 U/L (46-116) Troponin I Quantitative 0.035 ng/mL (0.000-0.055) TR-Cil-M-Type Natriuretic Peptide 1467 pg/mL (0-449) Total Protein 6.8 g/dL (6.4-8.2) Albumin 3.7 g/dL (3.4-5.0) Lipase 98 U/L (73-393) Urine Collection Type Unknown Urine Color Yellow Urine Clarity Clear Urine pH 6.5 Urine Specific [place] 1.020 Urine Protein Negative mg/dL (NEG-TRACE) Urine Glucose (UA) 100 mg/dL (NEG) Urine Ketones (Stick) 40 mg/dL (NEG) Urine Blood Negative (NEG) Urine Nitrite Negative (NEG) Urine Bilirubin Negative (NEG) Urine Urobilinogen Dipstick 1.0 mg/dL (0.2 mg/dL) Urine Leukocyte Esterase Negative (NEG) Urine RBC 1-2 /HPF (0-2) Urine WBC 1-4 /HPF (0-4) Urine Squamous Epithelial Cells Few /LPF Urine Bacteria 0 /HPF (0-FEW) Urine Mucus Mod /LPF Glucose (Fingerstick) 128 mg/dL (70-99) Test 09/25/18 05:37 Glucose (Fingerstick) 115 mg/dL (70-99) Medications Current Medications Ondansetron HCl (Zofran) 4 mg PRN Q8HRS PRN IV NAUSEA/VOMITING Last administered on 09/24/18at 22:33; Start 09/24/18 at 17:45; Stop 09/25/18 at 17:44 Sodium Chloride 1,000 ml @ 100 mls/hr Q10H IV Last administered on 09/25/18at 08:03; Start 09/24/18 at 17:37; Stop 09/25/18 at 17:36 Aspirin (Children'S Aspirin) 81 mg HS PO ; Start 09/25/18 at 21:00 Doxazosin Mesylate (Cardura) 4 mg HS PO ; Start 09/25/18 at 21:00 Finasteride (Proscar) 5 mg HS PO ; Start 09/25/18 at 21:00 Lisinopril (Prinivil) 40 mg BID PO ; Start 09/25/18 at 09:00 Losartan Potassium (Cozaar) 50 mg DAILY PO ; Start 09/25/18 at 09:00 Fish Oil (Fish Oil) 1,000 mg HS PO ; Start 09/25/18 at 21:00 Donepezil HCl (Aricept) 10 mg HS PO ; Start 09/25/18 at 21:00 Memantine (Namenda) 10 mg BID PO ; Start 09/25/18 at 09:00 Multivitamins (Thera M Plus) 1 tab DAILY PO ; Start 09/25/18 at 09:00 Metoprolol Tartrate (Lopressor) 25 mg BID PO ; Start 09/25/18 at 09:00 Sertraline HCl (Zoloft) 100 mg BID PO ; Start 09/25/18 at 09:00 Insulin Human Lispro (HumaLOG) 0-7 UNITS Q6HRS SQ ; Start 09/25/18 at 00:00 Dextrose (Dextrose 50%-Water Syringe) 12.5 gm PRN Q15MIN PRN IV SEE COMMENTS; Start 09/24/18 at 23:45 Nystatin (Nystop) 1 bart BID TP Last administered on 09/25/18at 08:59; Start at 09:00 Active Scripts Active Reported Coricidin Hbp Cough & Cold Tab (Dextromethorphan Hbr/Chlor-Mal) 1 Each Tablet 1 Each PO Aspirin 81 Mg Tab.chew 1 Tab PO HS Multivitamins (Multivitamin) 1 Each Tablet 1 Tab PO DAILY Fish Oil 1,000 Mg Capsule ([place]-3 Fatty Acids/Fish Oil) 1 Each Capsule 1 Each PO HS Losartan Potassium 100 Mg Tablet 100 Mg PO BID Losartan Potassium 50 Mg Tablet 50 Mg PO DAILY Zoloft (Sertraline Hcl) 100 Mg Tablet 1 Tab PO BID Zoloft (Sertraline Hcl) 100 Mg Tablet 100 Mg PO BID Finasteride 5 Mg Tablet 5 Mg PO HS Doxazosin Mesylate 4 Mg Tablet 4 Mg PO HS Namenda (Memantine Hcl) 10 Mg Tablet 10 Mg PO BID Donepezil Hcl 10 Mg Tablet 10 Mg PO HS Bystolic (Nebivolol) 5 Mg Tablet 5 Mg PO DAILY Glyburide 5 Mg Tablet 1 Tab PO BID Metformin Hcl 500 Mg Tablet 500 Mg PO BIDWMEALS Lisinopril 40 Mg Tablet 40 Mg PO BID Lorazepam 1 Mg Tablet 1 Tab PO TID Vitals/I & O Vital Sign - Last 24 Hours 09/24/18 09/24/18 09/24/18 09/24/18 11:41 12:01 12:58 13:01 Temp 97.8 97.8 Pulse 54 54 52 50 Resp 19 B/P (MAP) 166/73 (104) Pulse Ox 98 93 94 O2 Delivery Room Air 09/24/18 09/24/18 09/24/18 09/24/18 13:31 14:01 14:31 15:01 Pulse 54 56 54 52 Resp 18 21 27 20 Pulse Ox 93 95 94 09/24/18 09/24/18 09/24/18 09/24/18 16:01 16:31 17:01 17:31 Pulse 60 54 62 52 Resp 19 18 27 18 Pulse Ox 95 95 95 95 09/24/18 09/24/18 09/24/18 09/24/18 18:01 21:27 22:00 22:34 Temp 97.6 97.6 Pulse 62 64 56 Resp 29 17 18 B/P (MAP) 193/75 (114) Pulse Ox 94 94 O2 Delivery Room Air Room Air 09/24/18 09/25/18 09/25/18 09/25/18 22:36 03:00 07:13 08:00 Temp 97.6 97.5 98.6 97.6 97.5 98.6 Pulse 56 54 54 Resp 18 54 20 B/P (MAP) 193/75 (114) 120/45 (70) 194/77 (116) Pulse Ox 94 96 O2 Delivery Room Air Room Air Room Air Room Air O2 Flow Rate 92.0 Intake and Output 09/24/18 09/24/18 09/25/18 15:01 23:01 07:01 Intake Total 0 ml Output Total 500 ml Balance -500 ml 0 ml SOPHIE GIBBONS MD Sep 25, 2018 10:17
[2018-09-25 10:29] VITALS: BP 161/66
[2018-09-25] MEDS: LISINOPRIL 20 MG TABLET PO SCH ×2 (12:07→20:51)
[2018-09-25] MEDS: MULTIVITAMIN with MINERAL TABLET. PO SCH (12:08)
[2018-09-25] MEDS: LOSARTAN POTASSIUM 50 MG TABLET. PO SCH (12:08)
[2018-09-25] MEDS: MEMANTINE 10 MG TABLET. PO SCH ×2 (12:08→20:43)
[2018-09-25] MEDS: SERTRALINE 50 MG TABLET. PO SCH ×2 (12:08→20:46)
--- NOTE | 2018-09-25 12:15 | DISCH ---
DISCHARGE DISCHARGE INFORMATION: DISCHARGE DATE: Sep 25, 2018 FINAL DIAGNOSIS Problems Medical Problems: (1) Fall Status: Acute (2) Generalized weakness Status: Acute CODE STATUS: Code Status: DNR/DNI [facility]: SNF STAY <30 DAYS: Yes POST DISCHARGE ORDERS: ACTIVITY ORDERS: Activity as tolerated WEIGHT BEARING STATUS: As tolerated DIET AFTER DISCHARGE: ADA TREATMENT/EQUIPMENT ORDERS: Physical Therapy For: Evalulation/Treatment Occupational Therapy For: Evaluation/Treatment DISCHARGE MEDICATIONS: Home Meds Reported Medications Dextromethorphan Hbr/Chlor-Mal (CORICIDIN HBP COUGH & COLD TAB) 1 Each Tablet, 1 EACH PO, TAB 09/24/18 Aspirin (ASPIRIN) 81 Mg Tab.chew, 1 TAB PO HS, #30 TAB 3 Refills 09/24/18 Multivitamin (MULTIVITAMINS) 1 Each Tablet, 1 TAB PO DAILY, #90 TAB 3 Refills 09/24/18 [place]-3 Fatty Acids/Fish Oil (FISH OIL 1,000 MG CAPSULE) 1 Each Capsule, 1 EACH PO HS, CAP 09/24/18 Losartan Potassium (LOSARTAN POTASSIUM) 100 Mg Tablet, 100 MG PO BID for HYPERTENSION, TAB 09/24/18 Losartan Potassium (LOSARTAN POTASSIUM) 50 Mg Tablet, 50 MG PO DAILY for HYPERTENSION, TAB 09/24/18 Sertraline Hcl (ZOLOFT) 100 Mg Tablet, 1 TAB PO BID, #30 TAB 5 Refills 09/24/18 Sertraline Hcl (ZOLOFT) 100 Mg Tablet, 100 MG PO BID for ANTI-DEPRESSANT, TAB 0 Refills 09/24/18 Finasteride (FINASTERIDE) 5 Mg Tablet, 5 MG PO HS, TAB 09/24/18 Doxazosin Mesylate (DOXAZOSIN MESYLATE) 4 Mg Tablet, 4 MG PO HS, TAB 09/24/18 Memantine Hcl (NAMENDA) 10 Mg Tablet, 10 MG PO BID, TAB 09/24/18 Donepezil Hcl (DONEPEZIL HCL) 10 Mg Tablet, 10 MG PO HS, TAB 09/24/18 Nebivolol Hcl (BYSTOLIC) 5 Mg Tablet, 5 MG PO DAILY, TAB 09/24/18 Glyburide (GLYBURIDE) 5 Mg Tablet, 1 TAB PO BID, #60 TAB 5 Refills 09/24/18 Metformin Hcl (METFORMIN HCL) 500 Mg Tablet, 500 MG PO BIDWMEALS for ANTI- DIABETIC, TAB 0 Refills 09/24/18 Lisinopril (LISINOPRIL) 40 Mg Tablet, 40 MG PO BID for FOR HYPERTENSION, #30 TAB 0 Refills 09/24/18 Lorazepam (LORAZEPAM) 1 Mg Tablet, 1 TAB PO TID, #90 TAB 09/24/18 SOPHIE GIBBONS MD Sep 25, 2018 12:15
--- NOTE | 2018-09-25 12:17 | NUR ---
Patient took FLD and medications without any difficulty swallowing. Will advance diet per order Dr. Vaz.
--- NOTE | 2018-09-25 13:53 | PDOC2 ---
CONSULT Date of Consult Date of Consult DATE: 09/25/18 TIME: 13:45 Reason for Consult Reason for Consult: Arrhythmias. Referring Physician Referring Physician: Dr. Guardado Identification/Chief Complaint Chief Complaint Patient is status post a fall Source Source: Caregiver, Chart review History of Present Illness Reason for Visit: The patient is a 78-year-old male who was seen in the emergency room secondary to a fall. He has a history of Alzheimer's dementia as well as hypertension, hyperlipidemia and diabetes. Workup including CT scanning and has shown no fractures secondary to the patient's fall. He is comfortable this morning. We' ve been asked to see the patient due to episodes of paroxysmal atrial fibrillation flutter. Strips available showed mainly sinus arrhythmias with PACs and some PVCs. Monitor this morning shows a sinus rhythm with a rate of 46. As noted above the patient appears comfortable. Past Medical History Cardiovascular: No pertinent hx, CHF, HTN Pulmonary: No pertinent hx CENTRAL NERVOUS SYSTEM: Dementia GI: No pertinent hx Heme/Onc: No pertinent hx Hepatobiliary: No pertinent hx Psych: Other (Alzheimer's) Rheumatologic: No pertinent hx Infectious disease: No pertinent hx ENT: No pertinent hx Renal/: No pertinent hx Endocrine: Diabetes Dermatology: No pertinent hx Past Surgical History Past Surgical History: No pertinent history Family History Family History: Alzheimer's Disease, Diabetes, Hypertension Social History No ALCOHOL: none Drugs: None Current Problem List Problem List Problems Medical Problems: (1) Fall Status: Acute (2) Generalized weakness Status: Acute Current Medications Current Medications Current Medications Ondansetron HCl (Zofran) 4 mg PRN Q8HRS PRN IV NAUSEA/VOMITING Last administered on 09/24/18at 22:33; Start 09/24/18 at 17:45; Stop 09/25/18 at 17:44 Sodium Chloride 1,000 ml @ 100 mls/hr Q10H IV Last administered on 09/25/18at 08:03; Start 09/24/18 at 17:37; Stop 09/25/18 at 17:36 Aspirin (Children'S Aspirin) 81 mg HS PO ; Start 09/25/18 at 21:00 Doxazosin Mesylate (Cardura) 4 mg HS PO ; Start 09/25/18 at 21:00 Finasteride (Proscar) 5 mg HS PO ; Start 09/25/18 at 21:00 Lisinopril (Prinivil) 40 mg BID PO Last administered on 09/25/18at 12:07; Start 09/25/18 at 09:00 Losartan Potassium (Cozaar) 50 mg DAILY PO Last administered on 09/25/18at 12:08 ; Start 09/25/18 at 09:00 Fish Oil (Fish Oil) 1,000 mg HS PO ; Start 09/25/18 at 21:00 Donepezil HCl (Aricept) 10 mg HS PO ; Start 09/25/18 at 21:00 Memantine (Namenda) 10 mg BID PO Last administered on 09/25/18at 12:08; Start at 09:00 Multivitamins (Thera M Plus) 1 tab DAILY PO Last administered on 09/25/18at 12: 08; Start 09/25/18 at 09:00 Metoprolol Tartrate (Lopressor) 25 mg BID PO ; Start 09/25/18 at 09:00; Stop at 10:29; Status DC Sertraline HCl (Zoloft) 100 mg BID PO Last administered on 09/25/18at 12:08; Start 09/25/18 at 09:00 Insulin Human Lispro (HumaLOG) 0-7 UNITS Q6HRS SQ ; Start 09/25/18 at 00:00 Dextrose (Dextrose 50%-Water Syringe) 12.5 gm PRN Q15MIN PRN IV SEE COMMENTS; Start 09/24/18 at 23:45 Nystatin (Nystop) 1 bart BID TP Last administered on 09/25/18at 08:59; Start at 09:00 Active Scripts Active Reported Coricidin Hbp Cough & Cold Tab (Dextromethorphan Hbr/Chlor-Mal) 1 Each Tablet 1 Each PO Aspirin 81 Mg Tab.chew 1 Tab PO HS Multivitamins (Multivitamin) 1 Each Tablet 1 Tab PO DAILY Fish Oil 1,000 Mg Capsule ([place]-3 Fatty Acids/Fish Oil) 1 Each Capsule 1 Each PO HS Losartan Potassium 100 Mg Tablet 100 Mg PO BID Losartan Potassium 50 Mg Tablet 50 Mg PO DAILY Zoloft (Sertraline Hcl) 100 Mg Tablet 1 Tab PO BID Zoloft (Sertraline Hcl) 100 Mg Tablet 100 Mg PO BID Finasteride 5 Mg Tablet 5 Mg PO HS Doxazosin Mesylate 4 Mg Tablet 4 Mg PO HS Namenda (Memantine Hcl) 10 Mg Tablet 10 Mg PO BID Donepezil Hcl 10 Mg Tablet 10 Mg PO HS Bystolic (Nebivolol) 5 Mg Tablet 5 Mg PO DAILY Glyburide 5 Mg Tablet 1 Tab PO BID Metformin Hcl 500 Mg Tablet 500 Mg PO BIDWMEALS Lisinopril 40 Mg Tablet 40 Mg PO BID Lorazepam 1 Mg Tablet 1 Tab PO TID Allergies Allergies: Coded Allergies: morphine (Verified Allergy, Intermediate, 09/24/18) ROS General: YES: Fatigue Physical Exam General: No acute distress HEENT: Atraumatic Lungs: Clear to auscultation Heart: Regular rate Abdomen: Normal bowel sounds Vitals VITALS Vital Signs Date Time Temp Pulse Resp B/P (MAP) Pulse Ox O2 Delivery O2 Flow Rate FiO2 09/25/18 12:08 54 161/66 09/25/18 10:29 97.9 18 Room Air 90.0 97.9 09/25/18 03:00 96 Labs Labs Laboratory Tests Test 09/24/18 13:10 09/24/18 15:25 09/25/18 00:40 09/25/18 04:50 White Blood Count 8.5 x10^3/uL (4.0-11.0) 7.5 x10^3/uL (4.0-11.0) Red Blood Count 4.37 x10^6/uL (4.30-5.70) 4.05 x10^6/uL (4.30-5.70) Hemoglobin 12.4 g/dL (13.0-17.5) 11.6 g/dL (13.0-17.5) Hematocrit 38.3 % (39.0-53.0) 35.4 % (39.0-53.0) Mean Corpuscular Volume 88 fL (79-100) 87 fL (79-100) Mean Corpuscular Hemoglobin 28 pg (25-35) 29 pg (25-35) Mean Corpuscular Hemoglobin Concent 32 g/dL (31-37) 33 g/dL (31-37) Red Cell Distribution Width 14.2 % (11.5-14.5) 14.2 % (11.5-14.5) Platelet Count 186 x10^3/uL (140-400) 181 x10^3/uL (140-400) Neutrophils (%) (Auto) 92 % (31-73) 82 % (31-73) Lymphocytes (%) (Auto) 4 % (24-48) 12 % (24-48) Monocytes (%) (Auto) 4 % (0-9) 6 % (0-9) Eosinophils (%) (Auto) 0 % (0-3) 1 % (0-3) Basophils (%) (Auto) 1 % (0-3) 0 % (0-3) Neutrophils # (Auto) 7.8 x10^3uL (1.8-7.7) 6.1 x10^3uL (1.8-7.7) Lymphocytes # (Auto) 0.3 x10^3/uL (1.0-4.8) 0.9 x10^3/uL (1.0-4.8) Monocytes # (Auto) 0.3 x10^3/uL (0.0-1.1) 0.4 x10^3/uL (0.0-1.1) Eosinophils # (Auto) 0.0 x10^3/uL (0.0-0.7) 0.0 x10^3/uL (0.0-0.7) Basophils # (Auto) 0.0 x10^3/uL (0.0-0.2) 0.0 x10^3/uL (0.0-0.2) Segmented Neutrophils % 90 % (35-66) Band Neutrophils % 1 % (0-9) Lymphocytes % 6 % (24-48) Monocytes % 3 % (0-10) Platelet Estimate Adequate (ADEQUATE) Sodium Level 141 mmol/L (136-145) 143 mmol/L (136-145) Potassium Level 4.1 mmol/L (3.5-5.1) 3.6 mmol/L (3.5-5.1) Chloride Level 101 mmol/L (98-107) 106 mmol/L (98-107) Carbon Dioxide Level 31 mmol/L (21-32) 31 mmol/L (21-32) Anion Gap 9 (6-14) 6 (6-14) Blood Urea Nitrogen 14 mg/dL (8-26) 13 mg/dL (8-26) Creatinine 0.7 mg/dL (0.7-1.3) 0.7 mg/dL (0.7-1.3) Estimated GFR (Cockcroft-Gault) 109.1 109.1 Glucose Level 199 mg/dL (70-99) 140 mg/dL (70-99) Calcium Level 8.8 mg/dL (8.5-10.1) 8.9 mg/dL (8.5-10.1) Total Bilirubin 0.7 mg/dL (0.2-1.0) Direct Bilirubin 0.2 mg/dL (0.0-0.2) Aspartate Amino Transf (AST/SGOT) 19 U/L (15-37) Alanine Aminotransferase (ALT/SGPT) 20 U/L (16-63) Alkaline Phosphatase 83 U/L (46-116) Troponin I Quantitative 0.035 ng/mL (0.000-0.055) [id number]-Type Natriuretic Peptide 1467 pg/mL (0-449) Total Protein 6.8 g/dL (6.4-8.2) Albumin 3.7 g/dL (3.4-5.0) Lipase 98 U/L (73-393) Urine Collection Type Unknown Urine Color Yellow Urine Clarity Clear Urine pH 6.5 Urine Specific [place] 1.020 Urine Protein Negative mg/dL (NEG-TRACE) Urine Glucose (UA) 100 mg/dL (NEG) Urine Ketones (Stick) 40 mg/dL (NEG) Urine Blood Negative (NEG) Urine Nitrite Negative (NEG) Urine Bilirubin Negative (NEG) Urine Urobilinogen Dipstick 1.0 mg/dL (0.2 mg/dL) Urine Leukocyte Esterase Negative (NEG) Urine RBC 1-2 /HPF (0-2) Urine WBC 1-4 /HPF (0-4) Urine Squamous Epithelial Cells Few /LPF Urine Bacteria 0 /HPF (0-FEW) Urine Mucus Mod /LPF Glucose (Fingerstick) 128 mg/dL (70-99) Test 09/25/18 05:37 Glucose (Fingerstick) 115 mg/dL (70-99) Laboratory Tests Test 09/24/18 15:25 09/25/18 00:40 09/25/18 04:50 09/25/18 05:37 Urine Collection Type Unknown Urine Color Yellow Urine Clarity Clear Urine pH 6.5 Urine Specific [place] 1.020 Urine Protein Negative mg/dL (NEG-TRACE) Urine Glucose (UA) 100 mg/dL (NEG) Urine Ketones (Stick) 40 mg/dL (NEG) Urine Blood Negative (NEG) Urine Nitrite Negative (NEG) Urine Bilirubin Negative (NEG) Urine Urobilinogen Dipstick 1.0 mg/dL (0.2 mg/dL) Urine Leukocyte Esterase Negative (NEG) Urine RBC 1-2 /HPF (0-2) Urine WBC 1-4 /HPF (0-4) Urine Squamous Epithelial Cells Few /LPF Urine Bacteria 0 /HPF (0-FEW) Urine Mucus Mod /LPF Glucose (Fingerstick) 128 mg/dL (70-99) 115 mg/dL (70-99) White Blood Count 7.5 x10^3/uL (4.0-11.0) Red Blood Count 4.05 x10^6/uL (4.30-5.70) Hemoglobin 11.6 g/dL (13.0-17.5) Hematocrit 35.4 % (39.0-53.0) Mean Corpuscular Volume 87 fL (79-100) Mean Corpuscular Hemoglobin 29 pg (25-35) Mean Corpuscular Hemoglobin Concent 33 g/dL (31-37) Red Cell Distribution Width 14.2 % (11.5-14.5) Platelet Count 181 x10^3/uL (140-400) Neutrophils (%) (Auto) 82 % (31-73) Lymphocytes (%) (Auto) 12 % (24-48) Monocytes (%) (Auto) 6 % (0-9) Eosinophils (%) (Auto) 1 % (0-3) Basophils (%) (Auto) 0 % (0-3) Neutrophils # (Auto) 6.1 x10^3uL (1.8-7.7) Lymphocytes # (Auto) 0.9 x10^3/uL (1.0-4.8) Monocytes # (Auto) 0.4 x10^3/uL (0.0-1.1) Eosinophils # (Auto) 0.0 x10^3/uL (0.0-0.7) Basophils # (Auto) 0.0 x10^3/uL (0.0-0.2) Sodium Level 143 mmol/L (136-145) Potassium Level 3.6 mmol/L (3.5-5.1) Chloride Level 106 mmol/L (98-107) Carbon Dioxide Level 31 mmol/L (21-32) Anion Gap 6 (6-14) Blood Urea Nitrogen 13 mg/dL (8-26) Creatinine 0.7 mg/dL (0.7-1.3) Estimated GFR (Cockcroft-Gault) 109.1 Glucose Level 140 mg/dL (70-99) Calcium Level 8.9 mg/dL (8.5-10.1) Assessment/Plan Assessment/Plan 1. Mechanical fall. CT scanning as above shows no fractures. We'll continue to monitor. Placement is being arranged for the patient. 2. Alzheimer's dementia. Continue present treatments. 3. Hypertension. Blood pressure is under reasonable control. 4. Diabetes mellitus. Medications as per the primary service. 5. Possible episodes of atrial fib flutter. Patient is in a sinus bradycardia today. Episodes overnight did include sinus arrhythmia was with PACs. At this time beta blockers have been held due to this patient's bradycardia. He is not a candidate for anticoagulation. At this time will continue on present treatments and continue on telemetry. Thank you for allowing us to participate in the care of your patient. JUN FAROOQ MD Sep 25, 2018 13:53
[2018-09-25 14:35] VITALS: BP 153/70
[2018-09-25 19:00] VITALS: BP 179/82
[2018-09-25] MEDS ORDERED: ONDANSETRON ODT 4 MG TAB.RAPDIS. PO PRN (19:30)
[2018-09-25] MEDS ORDERED: ONDANSETRON PF 4 MG/2 ML VIAL. IV PRN (19:30)
[2018-09-25] MEDS ORDERED: HALOPERIDOL 2 MG/ML ORAL.CONC. PO PRN (19:30)
[2018-09-25] MEDS ORDERED: ACETAMINOPHEN 500 MG TABLET PO PRN (19:30)
[2018-09-25] MEDS: OMEGA-3 FATTY ACIDS/FISH OIL 1,000 MG CAPSULE. PO SCH (20:42)
[2018-09-25] MEDS: FINASTERIDE 5 MG TABLET. PO SCH (20:42)
[2018-09-25] MEDS: DOXAZOSIN MESYLATE 4 MG TABLET. PO SCH (20:43)
[2018-09-25] MEDS: DONEPEZIL HCL 10 MG TABLET. PO SCH (20:43)
[2018-09-25] MEDS: ASPIRIN CHEWABLE 81 MG TABLET. PO SCH (20:47)
[2018-09-25 23:00] VITALS: BP 166/85
[2018-09-26 03:00] VITALS: BP 149/70
[2018-09-26 07:30] VITALS: BP 160/91
[2018-09-26] MEDS: INSULIN LISPRO 300 UNITS/3 ML INSULN.PEN. SQ SCH ×4 (07:30→20:39)
[2018-09-26] MEDS: LISINOPRIL 20 MG TABLET PO SCH ×2 (08:33→20:37)
[2018-09-26] MEDS: MEMANTINE 10 MG TABLET. PO SCH ×2 (08:33→20:37)
[2018-09-26] MEDS: SERTRALINE 50 MG TABLET. PO SCH ×2 (08:34→20:37)
[2018-09-26] MEDS: MULTIVITAMIN with MINERAL TABLET. PO SCH (08:34)
[2018-09-26] MEDS: LOSARTAN POTASSIUM 50 MG TABLET. PO SCH (08:36)
[2018-09-26] MEDS: NYSTATIN TOPICAL POWDER 15GM BOTTLE. TP SCH ×2 (08:38→20:49)
--- NOTE | 2018-09-26 09:19 | PDOC ---
PROGRESS NOTES Chief Complaint Chief Complaint nausea and Vomiting - improved weakness and debility, Fall at home - PT/OT Aflutter - new, rate control. With his fall he is high risk for anticoagulation. Will consult cardiology for further recs Alzheimer dementia - acute on chronic encephalopathy, confusion with symptoms DM2 - HTN - History of Present Illness History of Present Illness confused earlier calm now will try clear liquid diet plan [place] psych Vitals Vitals Vital Signs Date Time Temp Pulse Resp B/P (MAP) Pulse Ox O2 Delivery O2 Flow Rate FiO2 09/26/18 08:36 54 160/91 09/26/18 08:04 Room Air 09/26/18 07:30 97.9 16 94 97.9 09/25/18 10:29 90.0 Physical Exam Physical Exam sleeping hard, easily aroused General: No acute distress Heart: Regular rate Abdomen: Normal bowel sounds Extremities: No clubbing, No cyanosis, No edema, Normal pulses, No tenderness/ swelling Skin: No rashes, No breakdown, No significant lesion Labs LABS Laboratory Tests Test 09/25/18 11:24 09/25/18 16:27 09/25/18 20:24 09/26/18 08:18 Glucose (Fingerstick) 121 mg/dL (70-99) 112 mg/dL (70-99) 102 mg/dL (70-99) 116 mg/dL (70-99) Review of Systems Review of Systems has scratched his left ear, some bleeding no n/v Assessment and Plan Assessmemt and Plan Problems Medical Problems: (1) Fall Status: Acute (2) Generalized weakness Status: Acute Comment Review of Relevant I have reviewed the following items [place] (where applicable) has been applied. Labs Laboratory Tests Test 09/24/18 13:10 09/24/18 15:25 09/25/18 00:40 09/25/18 04:50 White Blood Count 8.5 x10^3/uL (4.0-11.0) 7.5 x10^3/uL (4.0-11.0) Red Blood Count 4.37 x10^6/uL (4.30-5.70) 4.05 x10^6/uL (4.30-5.70) Hemoglobin 12.4 g/dL (13.0-17.5) 11.6 g/dL (13.0-17.5) Hematocrit 38.3 % (39.0-53.0) 35.4 % (39.0-53.0) Mean Corpuscular Volume 88 fL (79-100) 87 fL (79-100) Mean Corpuscular Hemoglobin 28 pg (25-35) 29 pg (25-35) Mean Corpuscular Hemoglobin Concent 32 g/dL (31-37) 33 g/dL (31-37) Red Cell Distribution Width 14.2 % (11.5-14.5) 14.2 % (11.5-14.5) Platelet Count 186 x10^3/uL (140-400) 181 x10^3/uL (140-400) Neutrophils (%) (Auto) 92 % (31-73) 82 % (31-73) Lymphocytes (%) (Auto) 4 % (24-48) 12 % (24-48) Monocytes (%) (Auto) 4 % (0-9) 6 % (0-9) Eosinophils (%) (Auto) 0 % (0-3) 1 % (0-3) Basophils (%) (Auto) 1 % (0-3) 0 % (0-3) Neutrophils # (Auto) 7.8 x10^3uL (1.8-7.7) 6.1 x10^3uL (1.8-7.7) Lymphocytes # (Auto) 0.3 x10^3/uL (1.0-4.8) 0.9 x10^3/uL (1.0-4.8) Monocytes # (Auto) 0.3 x10^3/uL (0.0-1.1) 0.4 x10^3/uL (0.0-1.1) Eosinophils # (Auto) 0.0 x10^3/uL (0.0-0.7) 0.0 x10^3/uL (0.0-0.7) Basophils # (Auto) 0.0 x10^3/uL (0.0-0.2) 0.0 x10^3/uL (0.0-0.2) Segmented Neutrophils % 90 % (35-66) Band Neutrophils % 1 % (0-9) Lymphocytes % 6 % (24-48) Monocytes % 3 % (0-10) Platelet Estimate Adequate (ADEQUATE) Sodium Level 141 mmol/L (136-145) 143 mmol/L (136-145) Potassium Level 4.1 mmol/L (3.5-5.1) 3.6 mmol/L (3.5-5.1) Chloride Level 101 mmol/L (98-107) 106 mmol/L (98-107) Carbon Dioxide Level 31 mmol/L (21-32) 31 mmol/L (21-32) Anion Gap 9 (6-14) 6 (6-14) Blood Urea Nitrogen 14 mg/dL (8-26) 13 mg/dL (8-26) Creatinine 0.7 mg/dL (0.7-1.3) 0.7 mg/dL (0.7-1.3) Estimated GFR (Cockcroft-Gault) 109.1 109.1 Glucose Level 199 mg/dL (70-99) 140 mg/dL (70-99) Calcium Level 8.8 mg/dL (8.5-10.1) 8.9 mg/dL (8.5-10.1) Total Bilirubin 0.7 mg/dL (0.2-1.0) Direct Bilirubin 0.2 mg/dL (0.0-0.2) Aspartate Amino Transf (AST/SGOT) 19 U/L (15-37) Alanine Aminotransferase (ALT/SGPT) 20 U/L (16-63) Alkaline Phosphatase 83 U/L (46-116) Troponin I Quantitative 0.035 ng/mL (0.000-0.055) HB-Kpt-Y-Type Natriuretic Peptide 1467 pg/mL (0-449) Total Protein 6.8 g/dL (6.4-8.2) Albumin 3.7 g/dL (3.4-5.0) Lipase 98 U/L (73-393) Urine Collection Type Unknown Urine Color Yellow Urine Clarity Clear Urine pH 6.5 Urine Specific [place] 1.020 Urine Protein Negative mg/dL (NEG-TRACE) Urine Glucose (UA) 100 mg/dL (NEG) Urine Ketones (Stick) 40 mg/dL (NEG) Urine Blood Negative (NEG) Urine Nitrite Negative (NEG) Urine Bilirubin Negative (NEG) Urine Urobilinogen Dipstick 1.0 mg/dL (0.2 mg/dL) Urine Leukocyte Esterase Negative (NEG) Urine RBC 1-2 /HPF (0-2) Urine WBC 1-4 /HPF (0-4) Urine Squamous Epithelial Cells Few /LPF Urine Bacteria 0 /HPF (0-FEW) Urine Mucus Mod /LPF Glucose (Fingerstick) 128 mg/dL (70-99) Test 09/25/18 05:37 09/25/18 11:24 09/25/18 16:27 09/25/18 20:24 Glucose (Fingerstick) 115 mg/dL (70-99) 121 mg/dL (70-99) 112 mg/dL (70-99) 102 mg/dL (70-99) Test 09/26/18 08:18 Glucose (Fingerstick) 116 mg/dL (70-99) Laboratory Tests Test 09/25/18 11:24 09/25/18 16:27 09/25/18 20:24 09/26/18 08:18 Glucose (Fingerstick) 121 mg/dL (70-99) 112 mg/dL (70-99) 102 mg/dL (70-99) 116 mg/dL (70-99) Medications Current Medications Ondansetron HCl (Zofran) 4 mg PRN Q8HRS PRN IV NAUSEA/VOMITING Last administered on 09/24/18at 22:33; Start 09/24/18 at 17:45; Stop 09/25/18 at 17:44 ; Status DC Sodium Chloride 1,000 ml @ 100 mls/hr Q10H IV Last administered on 09/25/18at 17:15; Start 09/24/18 at 17:37; Stop 09/25/18 at 17:36; Status DC Aspirin (Children'S Aspirin) 81 mg HS PO Last administered on 09/25/18at 20:47; Start 09/25/18 at 21:00 Doxazosin Mesylate (Cardura) 4 mg HS PO Last administered on 09/25/18at 20:43; Start 09/25/18 at 21:00 Finasteride (Proscar) 5 mg HS PO Last administered on 09/25/18at 20:42; Start at 21:00 Lisinopril (Prinivil) 40 mg BID PO Last administered on 09/26/18at 08:33; Start 09/25/18 at 09:00 Losartan Potassium (Cozaar) 50 mg DAILY PO Last administered on 09/26/18 08:36 ; Start 09/25/18 at 09:00 Fish Oil (Fish Oil) 1,000 mg HS PO Last administered on 09/25/18at 20:42; Start 09/25/18 at 21:00 Donepezil HCl (Aricept) 10 mg HS PO Last administered on 09/25/18 20:43; Start 09/25/18 at 21:00 Memantine (Namenda) 10 mg BID PO Last administered on 09/26/18 08:33; Start at 09:00 Multivitamins (Thera M Plus) 1 tab DAILY PO Last administered on 09/26/18 08: 34; Start 09/25/18 at 09:00 Metoprolol Tartrate (Lopressor) 25 mg BID PO ; Start 09/25/18 at 09:00; Stop at 10:29; Status DC Sertraline HCl (Zoloft) 100 mg BID PO Last administered on 09/26/18 08:34; Start 09/25/18 at 09:00 Insulin Human Lispro (HumaLOG) 0-7 UNITS Q6HRS SQ ; Start 09/25/18 at 00:00; Stop 09/25/18 at 16:28; Status DC Dextrose (Dextrose 50%-Water Syringe) 12.5 gm PRN Q15MIN PRN IV SEE COMMENTS; Start 09/24/18 at 23:45 Nystatin (Nystop) 1 bart BID TP Last administered on 09/26/18at 08:38; Start at 09:00 Insulin Human Lispro (HumaLOG) 0-7 UNITS QIDACHS SQ ; Start 09/25/18 at 16:30 Acetaminophen (Tylenol) 500 mg PRN Q6HRS PRN PO MILD PAIN / TEMP; Start at 19:30 Ondansetron HCl (Zofran) 4 mg PRN Q6HRS PRN IV NAUSEA/VOMITING; Start 09/25/18 at 19:30 Ondansetron HCl (Zofran Odt) 4 mg PRN Q6HRS PRN PO NAUSEA/VOMITING; Start 09/25 at 19:30 Haloperidol Lactate (HALDOL 2mg ORAL CONC) 2 mg PRN Q6HRS PRN PO AGITATION/ PSYCHOSIS Last administered on 09/25/18at 20:43; Start 09/25/18 at 19:30 Lorazepam (Ativan) 2 mg PRN Q4HRS PRN IV ANXIETY / AGITATION Last administered on 09/25/18at 22:57; Start 09/25/18 at 19:30 Active Scripts Active Reported Coricidin Hbp Cough & Cold Tab (Dextromethorphan Hbr/Chlor-Mal) 1 Each Tablet 1 Each PO Aspirin 81 Mg Tab.chew 1 Tab PO HS Multivitamins (Multivitamin) 1 Each Tablet 1 Tab PO DAILY Fish Oil 1,000 Mg Capsule ([place]-3 Fatty Acids/Fish Oil) 1 Each Capsule 1 Each PO HS Losartan Potassium 100 Mg Tablet 100 Mg PO BID Losartan Potassium 50 Mg Tablet 50 Mg PO DAILY Zoloft (Sertraline Hcl) 100 Mg Tablet 1 Tab PO BID Zoloft (Sertraline Hcl) 100 Mg Tablet 100 Mg PO BID Finasteride 5 Mg Tablet 5 Mg PO HS Doxazosin Mesylate 4 Mg Tablet 4 Mg PO HS Namenda (Memantine Hcl) 10 Mg Tablet 10 Mg PO BID Donepezil Hcl 10 Mg Tablet 10 Mg PO HS Bystolic (Nebivolol) 5 Mg Tablet 5 Mg PO DAILY Glyburide 5 Mg Tablet 1 Tab PO BID Metformin Hcl 500 Mg Tablet 500 Mg PO BIDWMEALS Lisinopril 40 Mg Tablet 40 Mg PO BID Lorazepam 1 Mg Tablet 1 Tab PO TID Vitals/I & O Vital Sign - Last 24 Hours 09/25/18 09/25/18 09/25/18 09/25/18 10:29 12:07 12:08 14:35 Temp 97.9 97.9 97.9 97.9 Pulse 54 54 54 Resp 18 18 B/P (MAP) 161/66 (97) 161/66 161/66 153/70 (97) Pulse Ox 92 O2 Delivery Room Air Room Air O2 Flow Rate 90.0 09/25/18 09/25/18 09/25/18 09/25/18 19:00 19:37 20:43 20:51 Temp 98.2 98.2 Pulse 67 67 67 Resp 18 B/P (MAP) 179/82 (114) 179/82 179/82 Pulse Ox 97 O2 Delivery Room Air Room Air 09/25/18 09/26/18 09/26/18 09/26/18 23:00 03:00 07:30 08:04 Temp 97.8 97.9 97.8 97.9 Pulse 50 60 54 Resp 18 18 16 B/P (MAP) 166/85 (112) 149/70 (96) 160/91 (114) Pulse Ox 95 94 94 O2 Delivery Room Air Room Air Room Air Room Air 09/26/18 09/26/18 08:33 08:36 Pulse 54 54 B/P (MAP) 160/91 160/91 Intake and Output 09/25/18 09/25/18 09/26/18 15:01 23:01 07:01 Intake Total 1520 ml 1180 ml 1000 ml Balance 1520 ml 1180 ml 1000 ml SOPHIE GIBBONS MD Sep 26, 2018 09:19
[2018-09-26 10:52] VITALS: BP 153/75
[2018-09-26 15:00] VITALS: BP 148/79
--- NOTE | 2018-09-26 15:11 | PDOC ---
PROGRESS NOTES Subjective Subjective Patient seen and examined Objective Objective Vital Signs Date Time Temp Pulse Resp B/P (MAP) Pulse Ox O2 Delivery O2 Flow Rate FiO2 09/26/18 10:52 97.5 56 18 153/75 (101) 95 Room Air 97.5 09/25/18 10:29 90.0 Intake and Output 09/26/18 07:01 Intake Total 3700 ml Balance 3700 ml Intake Oral 700 ml IV Total 3000 ml # Voids 6 Physical Exam Abdomen: Normal bowel sounds Heart: Other (irregular rhythm) General: No acute distress Lungs: Other (minimally decreased breath sounds) Assessment Assessment Problems Medical Problems: (1) Fall Status: Acute (2) Generalized weakness Status: Acute 1. Mechanical fall. CT scanning as above shows no fractures. We'll continue to monitor. Placement is being arranged for the patient. 2. Alzheimer's dementia. Continue present treatments. 3. Hypertension. Blood pressure is under reasonable control. 4. Diabetes mellitus. Medications as per the primary service. 5. Possible episodes of atrial fib flutter. Patient had a sinus bradycardia yesterday. His rate is increased today. Due to his episodes of bradycardia will not start beta blockers unless his heart rate further elevates. He is not a candidate for anticoagulation. Comment Review of Relevant I have reviewed the following items randolph (where applicable) has been applied. Labs Laboratory Tests Test 09/24/18 15:25 09/25/18 00:40 09/25/18 04:50 09/25/18 05:37 Urine Collection Type Unknown Urine Color Yellow Urine Clarity Clear Urine pH 6.5 Urine Specific [place] 1.020 Urine Protein Negative mg/dL (NEG-TRACE) Urine Glucose (UA) 100 mg/dL (NEG) Urine Ketones (Stick) 40 mg/dL (NEG) Urine Blood Negative (NEG) Urine Nitrite Negative (NEG) Urine Bilirubin Negative (NEG) Urine Urobilinogen Dipstick 1.0 mg/dL (0.2 mg/dL) Urine Leukocyte Esterase Negative (NEG) Urine RBC 1-2 /HPF (0-2) Urine WBC 1-4 /HPF (0-4) Urine Squamous Epithelial Cells Few /LPF Urine Bacteria 0 /HPF (0-FEW) Urine Mucus Mod /LPF Glucose (Fingerstick) 128 mg/dL (70-99) 115 mg/dL (70-99) White Blood Count 7.5 x10^3/uL (4.0-11.0) Red Blood Count 4.05 x10^6/uL (4.30-5.70) Hemoglobin 11.6 g/dL (13.0-17.5) Hematocrit 35.4 % (39.0-53.0) Mean Corpuscular Volume 87 fL (79-100) Mean Corpuscular Hemoglobin 29 pg (25-35) Mean Corpuscular Hemoglobin Concent 33 g/dL (31-37) Red Cell Distribution Width 14.2 % (11.5-14.5) Platelet Count 181 x10^3/uL (140-400) Neutrophils (%) (Auto) 82 % (31-73) Lymphocytes (%) (Auto) 12 % (24-48) Monocytes (%) (Auto) 6 % (0-9) Eosinophils (%) (Auto) 1 % (0-3) Basophils (%) (Auto) 0 % (0-3) Neutrophils # (Auto) 6.1 x10^3uL (1.8-7.7) Lymphocytes # (Auto) 0.9 x10^3/uL (1.0-4.8) Monocytes # (Auto) 0.4 x10^3/uL (0.0-1.1) Eosinophils # (Auto) 0.0 x10^3/uL (0.0-0.7) Basophils # (Auto) 0.0 x10^3/uL (0.0-0.2) Sodium Level 143 mmol/L (136-145) Potassium Level 3.6 mmol/L (3.5-5.1) Chloride Level 106 mmol/L (98-107) Carbon Dioxide Level 31 mmol/L (21-32) Anion Gap 6 (6-14) Blood Urea Nitrogen 13 mg/dL (8-26) Creatinine 0.7 mg/dL (0.7-1.3) Estimated GFR (Cockcroft-Gault) 109.1 Glucose Level 140 mg/dL (70-99) Calcium Level 8.9 mg/dL (8.5-10.1) Test 09/25/18 11:24 09/25/18 16:27 09/25/18 20:24 09/26/18 08:18 Glucose (Fingerstick) 121 mg/dL (70-99) 112 mg/dL (70-99) 102 mg/dL (70-99) 116 mg/dL (70-99) Test 09/26/18 11:41 Glucose (Fingerstick) 107 mg/dL (70-99) Laboratory Tests Test 09/25/18 16:27 09/25/18 20:24 09/26/18 08:18 09/26/18 11:41 Glucose (Fingerstick) 112 mg/dL (70-99) 102 mg/dL (70-99) 116 mg/dL (70-99) 107 mg/dL (70-99) Medications Current Medications Ondansetron HCl (Zofran) 4 mg PRN Q8HRS PRN IV NAUSEA/VOMITING Last administered on 09/24/18 22:33; Start 09/24/18 at 17:45; Stop 09/25/18 at 17:44 ; Status DC Sodium Chloride 1,000 ml @ 100 mls/hr Q10H IV Last administered on 09/25/18at 17:15; Start 09/24/18 at 17:37; Stop 09/25/18 at 17:36; Status DC Aspirin (Children'S Aspirin) 81 mg HS PO Last administered on 09/25/18at 20:47; Start 09/25/18 at 21:00 Doxazosin Mesylate (Cardura) 4 mg HS PO Last administered on 09/25/18 20:43; Start 09/25/18 at 21:00 Finasteride (Proscar) 5 mg HS PO Last administered on 09/25/18at 20:42; Start at 21:00 Lisinopril (Prinivil) 40 mg BID PO Last administered on 09/26/18at 08:33; Start 09/25/18 at 09:00 Losartan Potassium (Cozaar) 50 mg DAILY PO Last administered on 09/26/18 08:36 ; Start 09/25/18 at 09:00 Fish Oil (Fish Oil) 1,000 mg HS PO Last administered on 09/25/18at 20:42; Start 09/25/18 at 21:00 Donepezil HCl (Aricept) 10 mg HS PO Last administered on 09/25/18at 20:43; Start 09/25/18 at 21:00 Memantine (Namenda) 10 mg BID PO Last administered on 09/26/18 08:33; Start at 09:00 Multivitamins (Thera M Plus) 1 tab DAILY PO Last administered on 09/26/18 08: 34; Start 09/25/18 at 09:00 Metoprolol Tartrate (Lopressor) 25 mg BID PO ; Start 09/25/18 at 09:00; Stop at 10:29; Status DC Sertraline HCl (Zoloft) 100 mg BID PO Last administered on 09/26/18at 08:34; Start 09/25/18 at 09:00 Insulin Human Lispro (HumaLOG) 0-7 UNITS Q6HRS SQ ; Start 09/25/18 at 00:00; Stop 09/25/18 at 16:28; Status DC Dextrose (Dextrose 50%-Water Syringe) 12.5 gm PRN Q15MIN PRN IV SEE COMMENTS; Start 09/24/18 at 23:45 Nystatin (Nystop) 1 bart BID TP Last administered on 09/26/18at 08:38; Start at 09:00 Insulin Human Lispro (HumaLOG) 0-7 UNITS QIDACHS SQ ; Start 09/25/18 at 16:30 Acetaminophen (Tylenol) 500 mg PRN Q6HRS PRN PO MILD PAIN / TEMP; Start at 19:30 Ondansetron HCl (Zofran) 4 mg PRN Q6HRS PRN IV NAUSEA/VOMITING; Start 09/25/18 at 19:30 Ondansetron HCl (Zofran Odt) 4 mg PRN Q6HRS PRN PO NAUSEA/VOMITING; Start 09/25 at 19:30 Haloperidol Lactate (HALDOL 2mg ORAL CONC) 2 mg PRN Q6HRS PRN PO AGITATION/ PSYCHOSIS Last administered on 09/25/18 20:43; Start 09/25/18 at 19:30 Lorazepam (Ativan) 2 mg PRN Q4HRS PRN IV ANXIETY / AGITATION Last administered on 09/25/18at 22:57; Start 09/25/18 at 19:30 Active Scripts Active Reported Coricidin Hbp Cough & Cold Tab (Dextromethorphan Hbr/Chlor-Mal) 1 Each Tablet 1 Each PO Aspirin 81 Mg Tab.chew 1 Tab PO HS Multivitamins (Multivitamin) 1 Each Tablet 1 Tab PO DAILY Fish Oil 1,000 Mg Capsule ([place]-3 Fatty Acids/Fish Oil) 1 Each Capsule 1 Each PO HS Losartan Potassium 100 Mg Tablet 100 Mg PO BID Losartan Potassium 50 Mg Tablet 50 Mg PO DAILY Zoloft (Sertraline Hcl) 100 Mg Tablet 1 Tab PO BID Zoloft (Sertraline Hcl) 100 Mg Tablet 100 Mg PO BID Finasteride 5 Mg Tablet 5 Mg PO HS Doxazosin Mesylate 4 Mg Tablet 4 Mg PO HS Namenda (Memantine Hcl) 10 Mg Tablet 10 Mg PO BID Donepezil Hcl 10 Mg Tablet 10 Mg PO HS Bystolic (Nebivolol) 5 Mg Tablet 5 Mg PO DAILY Glyburide 5 Mg Tablet 1 Tab PO BID Metformin Hcl 500 Mg Tablet 500 Mg PO BIDWMEALS Lisinopril 40 Mg Tablet 40 Mg PO BID Lorazepam 1 Mg Tablet 1 Tab PO TID Vitals/I & O Vital Sign - Last 24 Hours 09/25/18 09/25/18 09/25/18 09/25/18 19:00 19:37 20:43 20:51 Temp 98.2 98.2 Pulse 67 67 67 Resp 18 B/P (MAP) 179/82 (114) 179/82 179/82 Pulse Ox 97 O2 Delivery Room Air Room Air 09/25/18 09/26/18 09/26/18 09/26/18 23:00 03:00 07:30 08:04 Temp 97.8 97.9 97.8 97.9 Pulse 50 60 54 Resp 18 18 16 B/P (MAP) 166/85 (112) 149/70 (96) 160/91 (114) Pulse Ox 95 94 94 O2 Delivery Room Air Room Air Room Air Room Air 09/26/18 09/26/18 09/26/18 08:33 08:36 10:52 Temp 97.5 97.5 Pulse 54 54 56 Resp 18 B/P (MAP) 160/91 160/91 153/75 (101) Pulse Ox 95 O2 Delivery Room Air Intake and Output 09/25/18 09/25/18 09/26/18 15:01 23:01 07:01 Intake Total 1520 ml 1180 ml 1000 ml Balance 1520 ml 1180 ml 1000 ml JUN FAROOQ MD Sep 26, 2018 15:11
--- NOTE | 2018-09-26 16:37 | NUR ---
Patient watching TV, calm and cooperative. See nursing communication. 1:1 order discontinued. Patient's here visiting. Continue fall protocol, bed and personal alarm.
[2018-09-26 19:08] VITALS: BP 170/89
[2018-09-26] MEDS: OMEGA-3 FATTY ACIDS/FISH OIL 1,000 MG CAPSULE. PO SCH (20:36)
[2018-09-26] MEDS: DONEPEZIL HCL 10 MG TABLET. PO SCH (20:37)
[2018-09-26] MEDS: FINASTERIDE 5 MG TABLET. PO SCH (20:37)
[2018-09-26] MEDS: DOXAZOSIN MESYLATE 4 MG TABLET. PO SCH (20:38)
[2018-09-26] MEDS: ASPIRIN CHEWABLE 81 MG TABLET. PO SCH (20:38)
[2018-09-26 23:05] VITALS: BP 208/104
[2018-09-26] MEDS ORDERED: amLODIPine BESYLATE 10 MG TABLET PO ONE (23:30)
[2018-09-27] VITALS (8 sets, daily range): BP systolic 128–209; BP diastolic 68–90
[2018-09-27] MEDS: LORazepam 1 MG TABLET PO PRN ×3 (02:33→22:18)
[2018-09-27] MEDS: INSULIN LISPRO 300 UNITS/3 ML INSULN.PEN. SQ SCH ×4 (07:30→21:00)
[2018-09-27] MEDS: NYSTATIN TOPICAL POWDER 15GM BOTTLE. TP SCH ×2 (09:00→22:26)
[2018-09-27] MEDS: MULTIVITAMIN with MINERAL TABLET. PO SCH (10:25)
[2018-09-27] MEDS: LOSARTAN POTASSIUM 50 MG TABLET. PO SCH (10:25)
[2018-09-27] MEDS: SERTRALINE 50 MG TABLET. PO SCH ×2 (10:25→22:20)
[2018-09-27] MEDS: MEMANTINE 10 MG TABLET. PO SCH ×2 (10:25→22:20)
[2018-09-27] MEDS: LISINOPRIL 20 MG TABLET PO SCH ×2 (10:26→22:19)
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
--- NOTE | 2018-09-27 11:52 | PDOC ---
PROGRESS NOTES Chief Complaint Chief Complaint nausea and Vomiting - improved weakness and debility, Fall at home - PT/OT Aflutter - new, rate control. With his fall he is high risk for anticoagulation. Will consult cardiology for further recs Alzheimer dementia - acute on chronic encephalopathy, confusion with symptoms DM2 - Hypertension. Blood pressure is under fair control. History of Present Illness History of Present Illness confused earlier calm now will try clear liquid diet plan [facility] psych Vitals Vitals Vital Signs Date Time Temp Pulse Resp B/P (MAP) Pulse Ox O2 Delivery O2 Flow Rate FiO2 09/27/18 11:23 97.5 53 20 143/68 (93) 97 Room Air 97.5 Physical Exam Physical Exam easily aroused Eyes: PERRLA, EOMI, conjunctiva normal, no discharge. [] Neck: Normal range of motion, no tenderness, supple, no stridor. [] Cardiovascular:Heart rate regular rhythm, no murmur [] Lungs & Thorax: Bilateral breath sounds clear to auscultation [] Abdomen: Bowel sounds normal, soft, no tenderness, no masses, no pulsatile masses. [] Skin: Warm, dry, no erythema, no rash. [] Back: No tenderness, no CVA tenderness. [] Extremities: No tenderness, no cyanosis, no clubbing, ROM intact, no edema. No pain with passive range of motion of the hips. Neurologic: Awake not oriented , baseline General: Cooperative, No acute distress Heart: Other (irregular rhythm) Abdomen: Normal bowel sounds, Soft Extremities: No clubbing, No cyanosis, No edema, Normal pulses, No tenderness/ swelling Skin: No rashes, No breakdown, No significant lesion Labs LABS CT PELVIS WO CONTRAST Clinical Indication: FALL, pain Comparison: None. TECHNIQUE: Helical CT imaging of the pelvis is performed without IV contrast. Findings: There is lower lumbar facet hypertrophy. No acute hip fracture is seen. There is no acute pelvic fracture. There is degenerative arthropathy of the hips. Severe disc space narrowing of L5/S1. Small exophytic cyst lower pole right kidney. The appendix is normal. Urinary bladder is normal. Prostate is moderately enlarged. No pelvic free fluid. There are fat containing bilateral inguinal hernias. There are benign inguinal lymph nodes bilaterally. No acute intramuscular hematoma is identified. Subcutaneous fat of the lateral hips is partially outside of [id number]. IMPRESSION: No acute pelvic or hip fracture. Electronically signed by: Олег Rinocn MD (09/24/2018 1:06 PM) [id number] Laboratory Tests Test 09/26/18 16:55 09/26/18 20:34 09/27/18 07:54 09/27/18 11:13 Glucose (Fingerstick) 98 mg/dL (70-99) 132 mg/dL (70-99) 133 mg/dL (70-99) 126 mg/dL (70-99) Assessment and Plan Assessmemt and Plan Problems Medical Problems: (1) Fall Status: Acute (2) Generalized weakness Status: Acute Comment Review of Relevant I have reviewed the following items randolph (where applicable) has been applied. Labs Laboratory Tests Test 09/25/18 16:27 09/25/18 20:24 09/26/18 08:18 09/26/18 11:41 Glucose (Fingerstick) 112 mg/dL (70-99) 102 mg/dL (70-99) 116 mg/dL (70-99) 107 mg/dL (70-99) Test 09/26/18 16:55 09/26/18 20:34 09/27/18 07:54 09/27/18 11:13 Glucose (Fingerstick) 98 mg/dL (70-99) 132 mg/dL (70-99) 133 mg/dL (70-99) 126 mg/dL (70-99) Laboratory Tests Test 09/26/18 16:55 09/26/18 20:34 09/27/18 07:54 09/27/18 11:13 Glucose (Fingerstick) 98 mg/dL (70-99) 132 mg/dL (70-99) 133 mg/dL (70-99) 126 mg/dL (70-99) Medications Current Medications Ondansetron HCl (Zofran) 4 mg PRN Q8HRS PRN IV NAUSEA/VOMITING Last administered on 09/24/18at 22:33; Start 09/24/18 at 17:45; Stop 09/25/18 at 17:44 ; Status DC Sodium Chloride 1,000 ml @ 100 mls/hr Q10H IV Last administered on 09/25/18at 17:15; Start 09/24/18 at 17:37; Stop 09/25/18 at 17:36; Status DC Aspirin (Children'S Aspirin) 81 mg HS PO Last administered on 09/26/18 20:38; Start 09/25/18 at 21:00 Doxazosin Mesylate (Cardura) 4 mg HS PO Last administered on 09/26/18at 20:38; Start 09/25/18 at 21:00 Finasteride (Proscar) 5 mg HS PO Last administered on 09/26/18 20:37; Start at 21:00 Lisinopril (Prinivil) 40 mg BID PO Last administered on 09/27/18 10:26; Start 09/25/18 at 09:00 Losartan Potassium (Cozaar) 50 mg DAILY PO Last administered on 09/27/18 10:25 ; Start 09/25/18 at 09:00 Fish Oil (Fish Oil) 1,000 mg HS PO Last administered on 09/26/18 20:36; Start 09/25/18 at 21:00 Donepezil HCl (Aricept) 10 mg HS PO Last administered on 09/26/18 20:37; Start 09/25/18 at 21:00 Memantine (Namenda) 10 mg BID PO Last administered on 09/27/18at 10:25; Start at 09:00 Multivitamins (Thera M Plus) 1 tab DAILY PO Last administered on 09/27/18 10: 25; Start 09/25/18 at 09:00 Metoprolol Tartrate (Lopressor) 25 mg BID PO ; Start 09/25/18 at 09:00; Stop at 10:29; Status DC Sertraline HCl (Zoloft) 100 mg BID PO Last administered on 09/27/18at 10:25; Start 09/25/18 at 09:00 Insulin Human Lispro (HumaLOG) 0-7 UNITS Q6HRS SQ ; Start 09/25/18 at 00:00; Stop 09/25/18 at 16:28; Status DC Dextrose (Dextrose 50%-Water Syringe) 12.5 gm PRN Q15MIN PRN IV SEE COMMENTS; Start 09/24/18 at 23:45 Nystatin (Nystop) 1 bart BID TP Last administered on 09/26/18at 20:49; Start at 09:00 Insulin Human Lispro (HumaLOG) 0-7 UNITS QIDACHS SQ ; Start 09/25/18 at 16:30 Acetaminophen (Tylenol) 500 mg PRN Q6HRS PRN PO MILD PAIN / TEMP; Start at 19:30 Ondansetron HCl (Zofran) 4 mg PRN Q6HRS PRN IV NAUSEA/VOMITING; Start 09/25/18 at 19:30 Ondansetron HCl (Zofran Odt) 4 mg PRN Q6HRS PRN PO NAUSEA/VOMITING; Start 09/25 at 19:30 Haloperidol Lactate (HALDOL 2mg ORAL CONC) 2 mg PRN Q6HRS PRN PO AGITATION/ PSYCHOSIS Last administered on 09/25/18at 20:43; Start 09/25/18 at 19:30 Lorazepam (Ativan) 2 mg PRN Q4HRS PRN IV ANXIETY / AGITATION Last administered on 09/26/18at 18:33; Start 09/25/18 at 19:30 Lorazepam (Ativan) 2 mg PRN Q4HRS PRN PO AGITATION Last administered on at 02:33; Start 09/26/18 at 22:30 Amlodipine Besylate (Norvasc) 10 mg QHS PO ; Start 09/27/18 at 21:00 Amlodipine Besylate (Norvasc) 10 mg 1X ONCE PO Last administered on 09/26/18at 23:22; Start 09/26/18 at 23:30; Stop 09/26/18 at 23:31; Status DC Hydralazine HCl (Apresoline) 50 mg PRN TID PRN PO ELEVATED BP, SEE COMMENTS Last administered on 09/27/18at 04:18; Start 09/27/18 at 04:00 Active Scripts Active Reported Coricidin Hbp Cough & Cold Tab (Dextromethorphan Hbr/Chlor-Mal) 1 Each Tablet 1 Each PO Aspirin 81 Mg Tab.chew 1 Tab PO HS Multivitamins (Multivitamin) 1 Each Tablet 1 Tab PO DAILY Fish Oil 1,000 Mg Capsule ([place]-3 Fatty Acids/Fish Oil) 1 Each Capsule 1 Each PO HS Losartan Potassium 100 Mg Tablet 100 Mg PO BID Losartan Potassium 50 Mg Tablet 50 Mg PO DAILY Zoloft (Sertraline Hcl) 100 Mg Tablet 1 Tab PO BID Zoloft (Sertraline Hcl) 100 Mg Tablet 100 Mg PO BID Finasteride 5 Mg Tablet 5 Mg PO HS Doxazosin Mesylate 4 Mg Tablet 4 Mg PO HS Namenda (Memantine Hcl) 10 Mg Tablet 10 Mg PO BID Donepezil Hcl 10 Mg Tablet 10 Mg PO HS Bystolic (Nebivolol) 5 Mg Tablet 5 Mg PO DAILY Glyburide 5 Mg Tablet 1 Tab PO BID Metformin Hcl 500 Mg Tablet 500 Mg PO BIDWMEALS Lisinopril 40 Mg Tablet 40 Mg PO BID Lorazepam 1 Mg Tablet 1 Tab PO TID Vitals/I & O Vital Sign - Last 24 Hours 09/26/18 09/26/18 09/26/18 09/26/18 15:00 19:08 19:29 20:37 Temp 97.8 97.6 97.8 97.6 Pulse 58 66 66 Resp 18 20 B/P (MAP) 148/79 (102) 170/89 (116) 170/89 Pulse Ox 95 O2 Delivery Room Air Room Air Room Air 09/26/18 09/26/18 09/26/18 09/27/18 20:38 23:05 23:22 00:16 Temp 97.9 97.9 Pulse 66 64 64 64 Resp 22 B/P (MAP) 170/89 208/104 (138) 208/104 155/68 (97) Pulse Ox 97 O2 Delivery Room Air 09/27/18 09/27/18 09/27/18 09/27/18 02:52 04:18 05:49 07:40 Temp 97.3 97.3 Pulse 71 71 72 Resp 20 B/P (MAP) 209/82 (124) 209/82 155/70 (98) Pulse Ox 96 O2 Delivery Room Air Room Air 09/27/18 09/27/18 09/27/18 09/27/18 08:15 10:25 10:26 11:23 Temp 97.2 97.5 97.2 97.5 Pulse 68 68 68 53 Resp 20 20 B/P (MAP) 132/78 (96) 132/78 132/78 143/68 (93) Pulse Ox 96 97 O2 Delivery Room Air Room Air Intake and Output 09/26/18 09/26/18 09/27/18 15:01 23:01 07:01 Intake Total 480 ml 280 ml 200 ml Balance 480 ml 280 ml 200 ml BERNARDO TAYLOR MD Sep 27, 2018 11:52
--- NOTE | 2018-09-27 14:29 | EKG ---
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
--- NOTE | 2018-09-27 15:30 | NUR ---
CATIA following pt. Ember at [facility] reported they are able to take pt if can provide DPOA paperwork. CATIA left a voice mail to [facility] casey saw operator as pt's had reported pt was there in 2006. CATIA also spoke with pt's PCP who confirmed pt's behavior but their office did not have DPOA documents. SW attempted to meet with pt's but she was out of room. CATIA will continue to follow.
--- NOTE | 2018-09-27 18:03 | PDOC ---
PROGRESS NOTES Subjective Subjective Patient seen and examined Objective Objective Vital Signs Date Time Temp Pulse Resp B/P (MAP) Pulse Ox O2 Delivery O2 Flow Rate FiO2 09/27/18 15:21 97.3 84 20 144/68 (93) 97.3 09/27/18 11:23 97 Room Air 09/25/18 10:29 90.0 Intake and Output 09/27/18 07:01 Intake Total 960 ml Balance 960 ml Intake Oral 960 ml # Voids 10 # Bowel Movements 1 Physical Exam Abdomen: Normal bowel sounds Heart: Regular rate General: No acute distress Lungs: Other (slightly decreased breath sounds) Assessment Assessment Problems Medical Problems: (1) Fall Status: Acute (2) Generalized weakness Status: Acute 1. Mechanical fall. CT scanning as above shows no fractures. We'll continue to monitor. Placement is being arranged for the patient. 2. Alzheimer's dementia. Continue present treatments. 3. Hypertension. Blood pressure is under reasonable control. 4. Diabetes mellitus. Medications as per the primary service. 5. Parox. atrial fib flutter. Patient had a sinus bradycardia yesterday. His rate is mildly increased today. Due to his episodes of bradycardia will not start beta blockers. Would continue present treatment. 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 Comment Review of Relevant I have reviewed the following items randolph (where applicable) has been applied. Labs Laboratory Tests Test 09/25/18 20:24 09/26/18 08:18 09/26/18 11:41 09/26/18 16:55 Glucose (Fingerstick) 102 mg/dL (70-99) 116 mg/dL (70-99) 107 mg/dL (70-99) 98 mg/dL (70-99) Test 09/26/18 20:34 09/27/18 07:54 09/27/18 11:13 09/27/18 16:23 Glucose (Fingerstick) 132 mg/dL (70-99) 133 mg/dL (70-99) 126 mg/dL (70-99) 136 mg/dL (70-99) Laboratory Tests Test 09/26/18 20:34 09/27/18 07:54 09/27/18 11:13 09/27/18 16:23 Glucose (Fingerstick) 132 mg/dL (70-99) 133 mg/dL (70-99) 126 mg/dL (70-99) 136 mg/dL (70-99) Medications Current Medications Ondansetron HCl (Zofran) 4 mg PRN Q8HRS PRN IV NAUSEA/VOMITING Last administered on 09/24/18at 22:33; Start 09/24/18 at 17:45; Stop 09/25/18 at 17:44 ; Status DC Sodium Chloride 1,000 ml @ 100 mls/hr Q10H IV Last administered on 09/25/18at 17:15; Start 09/24/18 at 17:37; Stop 09/25/18 at 17:36; Status DC Aspirin (Children'S Aspirin) 81 mg HS PO Last administered on 09/26/18 20:38; Start 09/25/18 at 21:00 Doxazosin Mesylate (Cardura) 4 mg HS PO Last administered on 09/26/18at 20:38; Start 09/25/18 at 21:00 Finasteride (Proscar) 5 mg HS PO Last administered on 09/26/18at 20:37; Start at 21:00 Lisinopril (Prinivil) 40 mg BID PO Last administered on 09/27/18 10:26; Start 09/25/18 at 09:00 Losartan Potassium (Cozaar) 50 mg DAILY PO Last administered on 09/27/18at 10:25 ; Start 09/25/18 at 09:00 Fish Oil (Fish Oil) 1,000 mg HS PO Last administered on 09/26/18at 20:36; Start 09/25/18 at 21:00 Donepezil HCl (Aricept) 10 mg HS PO Last administered on 09/26/18at 20:37; Start 09/25/18 at 21:00 Memantine (Namenda) 10 mg BID PO Last administered on 09/27/18 10:25; Start at 09:00 Multivitamins (Thera M Plus) 1 tab DAILY PO Last administered on 09/27/18at 10: 25; Start 09/25/18 at 09:00 Metoprolol Tartrate (Lopressor) 25 mg BID PO ; Start 09/25/18 at 09:00; Stop at 10:29; Status DC Sertraline HCl (Zoloft) 100 mg BID PO Last administered on 09/27/18at 10:25; Start 09/25/18 at 09:00 Insulin Human Lispro (HumaLOG) 0-7 UNITS Q6HRS SQ ; Start 09/25/18 at 00:00; Stop 09/25/18 at 16:28; Status DC Dextrose (Dextrose 50%-Water Syringe) 12.5 gm PRN Q15MIN PRN IV SEE COMMENTS; Start 09/24/18 at 23:45 Nystatin (Nystop) 1 bart BID TP Last administered on 09/26/18at 20:49; Start at 09:00 Insulin Human Lispro (HumaLOG) 0-7 UNITS QIDACHS SQ ; Start 09/25/18 at 16:30 Acetaminophen (Tylenol) 500 mg PRN Q6HRS PRN PO MILD PAIN / TEMP; Start at 19:30 Ondansetron HCl (Zofran) 4 mg PRN Q6HRS PRN IV NAUSEA/VOMITING; Start 09/25/18 at 19:30 Ondansetron HCl (Zofran Odt) 4 mg PRN Q6HRS PRN PO NAUSEA/VOMITING; Start 09/25 at 19:30 Haloperidol Lactate (HALDOL 2mg ORAL CONC) 2 mg PRN Q6HRS PRN PO AGITATION/ PSYCHOSIS Last administered on 09/25/18at 20:43; Start 09/25/18 at 19:30 Lorazepam (Ativan) 2 mg PRN Q4HRS PRN IV ANXIETY / AGITATION Last administered on 09/26/18at 18:33; Start 09/25/18 at 19:30 Lorazepam (Ativan) 2 mg PRN Q4HRS PRN PO AGITATION Last administered on at 17:35; Start 09/26/18 at 22:30 Amlodipine Besylate (Norvasc) 10 mg QHS PO ; Start 09/27/18 at 21:00 Amlodipine Besylate (Norvasc) 10 mg 1X ONCE PO Last administered on 09/26/18at 23:22; Start 09/26/18 at 23:30; Stop 09/26/18 at 23:31; Status DC Hydralazine HCl (Apresoline) 50 mg PRN TID PRN PO ELEVATED BP, SEE COMMENTS Last administered on 09/27/18at 04:18; Start 09/27/18 at 04:00 Active Scripts Active Reported Coricidin Hbp Cough & Cold Tab (Dextromethorphan Hbr/Chlor-Mal) 1 Each Tablet 1 Each PO Aspirin 81 Mg Tab.chew 1 Tab PO HS Multivitamins (Multivitamin) 1 Each Tablet 1 Tab PO DAILY Fish Oil 1,000 Mg Capsule ([place]-3 Fatty Acids/Fish Oil) 1 Each Capsule 1 Each PO HS Losartan Potassium 100 Mg Tablet 100 Mg PO BID Losartan Potassium 50 Mg Tablet 50 Mg PO DAILY Zoloft (Sertraline Hcl) 100 Mg Tablet 1 Tab PO BID Zoloft (Sertraline Hcl) 100 Mg Tablet 100 Mg PO BID Finasteride 5 Mg Tablet 5 Mg PO HS Doxazosin Mesylate 4 Mg Tablet 4 Mg PO HS Namenda (Memantine Hcl) 10 Mg Tablet 10 Mg PO BID Donepezil Hcl 10 Mg Tablet 10 Mg PO HS Bystolic (Nebivolol) 5 Mg Tablet 5 Mg PO DAILY Glyburide 5 Mg Tablet 1 Tab PO BID Metformin Hcl 500 Mg Tablet 500 Mg PO BIDWMEALS Lisinopril 40 Mg Tablet 40 Mg PO BID Lorazepam 1 Mg Tablet 1 Tab PO TID Vitals/I & O Vital Sign - Last 24 Hours 09/26/18 09/26/18 09/26/18 09/26/18 19:08 19:29 20:37 20:38 Temp 97.6 97.6 Pulse 66 66 66 Resp 20 B/P (MAP) 170/89 (116) 170/89 170/89 O2 Delivery Room Air Room Air 09/26/18 09/26/18 09/27/18 09/27/18 23:05 23:22 00:16 02:52 Temp 97.9 97.3 97.9 97.3 Pulse 64 64 64 71 Resp 22 20 B/P (MAP) 208/104 (138) 208/104 155/68 (97) 209/82 (124) Pulse Ox 97 96 O2 Delivery Room Air Room Air 09/27/18 09/27/18 09/27/18 09/27/18 04:18 05:49 07:40 08:15 Temp 97.2 97.2 Pulse 71 72 68 Resp 20 B/P (MAP) 209/82 155/70 (98) 132/78 (96) Pulse Ox 96 O2 Delivery Room Air Room Air 09/27/18 09/27/18 09/27/18 09/27/18 10:25 10:26 11:23 15:21 Temp 97.5 97.3 97.5 97.3 Pulse 68 68 53 84 Resp 20 20 B/P (MAP) 132/78 132/78 143/68 (93) 144/68 (93) Pulse Ox 97 O2 Delivery Room Air Intake and Output 09/26/18 09/26/18 09/27/18 15:01 23:01 07:01 Intake Total 480 ml 280 ml 200 ml Balance 480 ml 280 ml 200 ml JUN FAROOQ MD Sep 27, 2018 18:03
[2018-09-27] MEDS: OMEGA-3 FATTY ACIDS/FISH OIL 1,000 MG CAPSULE. PO SCH (22:19)
[2018-09-27] MEDS: DONEPEZIL HCL 10 MG TABLET. PO SCH (22:20)
[2018-09-27] MEDS: ASPIRIN CHEWABLE 81 MG TABLET. PO SCH (22:20)
[2018-09-27] MEDS: amLODIPine BESYLATE 10 MG TABLET PO SCH (22:20)
[2018-09-27] MEDS: FINASTERIDE 5 MG TABLET. PO SCH (22:20)
[2018-09-27] MEDS: DOXAZOSIN MESYLATE 4 MG TABLET. PO SCH (22:23)
[2018-09-28 03:00] VITALS: BP 130/85
[2018-09-28 06:41] LABS: BASO % 1 % (0-3); EOS # 0.2 x10^3/uL (0.0-0.7); EOS % 3 % (0-3); HEMATOCRIT 38.4 % (39.0-53.0); HEMOGLOBIN 12.7 g/dL (13.0-17.5); LYMPH % 14 % (24-48); MEAN CORPUSCULAR HEMOGLOBIN 29 pg (25-35); MEAN CORPUSCULAR HGB CONC 33 g/dL (31-37); MEAN CORPUSCULAR VOLUME 87 fL (79-100); MONO # 0.6 x10^3/uL (0.0-1.1); MONO % 9 % (0-9); NEUT # 5.3 x10^3uL (1.8-7.7); NEUT % 73 % (31-73); PLATELET COUNT 187 x10^3/uL (140-400); WHITE BLOOD COUNT 7.2 x10^3/uL (4.0-11.0)
[2018-09-28 07:00] VITALS: BP 166/85
[2018-09-28 07:02] LABS: ALBUMIN 3.4 g/dL (3.4-5.0); CALCIUM 9.1 mg/dL (8.5-10.1); CREATININE 0.8 mg/dL (0.7-1.3); GFR 93.5; POTASSIUM 3.4 mmol/L (3.5-5.1); TOTAL BILIRUBIN 0.8 mg/dL (0.2-1.0); TOTAL PROTEIN 6.8 g/dL (6.4-8.2)
[2018-09-28] MEDS: INSULIN LISPRO 300 UNITS/3 ML INSULN.PEN. SQ SCH ×4 (07:30→21:34)
[2018-09-28] MEDS: MULTIVITAMIN with MINERAL TABLET. PO SCH (09:06)
[2018-09-28] MEDS: MEMANTINE 10 MG TABLET. PO SCH ×2 (09:06→21:21)
[2018-09-28] MEDS: SERTRALINE 50 MG TABLET. PO SCH ×2 (09:06→21:21)
[2018-09-28] MEDS: LOSARTAN POTASSIUM 50 MG TABLET. PO SCH (09:07)
[2018-09-28] MEDS: LISINOPRIL 20 MG TABLET PO SCH ×2 (09:08→21:21)
[2018-09-28] MEDS: NYSTATIN TOPICAL POWDER 15GM BOTTLE. TP SCH ×2 (09:08→21:20)
--- NOTE | 2018-09-28 10:43 | PDOC ---
PROGRESS NOTES Chief Complaint Chief Complaint nausea and Vomiting - improved weakness and debility, Fall at home - PT/OT Aflutter - new, rate control. With his fall he is high risk for anticoagulation. Will consult cardiology for further recs Alzheimer dementia - acute on chronic encephalopathy, confusion with symptoms DM2 - Hypertension. Blood pressure is under fair control. History of Present Illness History of Present Illness confused earlier calm now will try clear liquid diet plan [facility] bed pending Vitals Vitals Vital Signs Date Time Temp Pulse Resp B/P (MAP) Pulse Ox O2 Delivery O2 Flow Rate FiO2 09/28/18 09:08 64 166/85 09/28/18 08:30 Room Air 09/28/18 07:00 98.2 18 96 98.2 09/27/18 20:00 92.0 Physical Exam Physical Exam easily aroused Eyes: PERRLA, EOMI, conjunctiva normal, no discharge. [] Neck: Normal range of motion, no tenderness, supple, no stridor. [] Cardiovascular:Heart rate regular rhythm, no murmur [] Lungs & Thorax: Bilateral breath sounds clear to auscultation [] Abdomen: Bowel sounds normal, soft, no tenderness, no masses, no pulsatile masses. [] Skin: Warm, dry, no erythema, no rash. [] Back: No tenderness, no CVA tenderness. [] Extremities: No tenderness, no cyanosis, no clubbing, ROM intact, no edema. No pain with passive range of motion of the hips. Neurologic: Awake not oriented , baseline General: Alert, Cooperative, No acute distress Heart: Regular rate Lungs: Clear Abdomen: Normal bowel sounds, Soft Extremities: No clubbing, No cyanosis, No edema, Normal pulses, No tenderness/ swelling Skin: No rashes, No breakdown, No significant lesion Labs LABS Laboratory Tests Test 09/27/18 11:13 09/27/18 16:23 09/27/18 22:27 09/28/18 04:45 Glucose (Fingerstick) 126 mg/dL (70-99) 136 mg/dL (70-99) 118 mg/dL (70-99) White Blood Count 7.2 x10^3/uL (4.0-11.0) Red Blood Count 4.40 x10^6/uL (4.30-5.70) Hemoglobin 12.7 g/dL (13.0-17.5) Hematocrit 38.4 % (39.0-53.0) Mean Corpuscular Volume 87 fL (79-100) Mean Corpuscular Hemoglobin 29 pg (25-35) Mean Corpuscular Hemoglobin Concent 33 g/dL (31-37) Red Cell Distribution Width 14.0 % (11.5-14.5) Platelet Count 187 x10^3/uL (140-400) Neutrophils (%) (Auto) 73 % (31-73) Lymphocytes (%) (Auto) 14 % (24-48) Monocytes (%) (Auto) 9 % (0-9) Eosinophils (%) (Auto) 3 % (0-3) Basophils (%) (Auto) 1 % (0-3) Neutrophils # (Auto) 5.3 x10^3uL (1.8-7.7) Lymphocytes # (Auto) 1.0 x10^3/uL (1.0-4.8) Monocytes # (Auto) 0.6 x10^3/uL (0.0-1.1) Eosinophils # (Auto) 0.2 x10^3/uL (0.0-0.7) Basophils # (Auto) 0.0 x10^3/uL (0.0-0.2) Sodium Level 140 mmol/L (136-145) Potassium Level 3.4 mmol/L (3.5-5.1) Chloride Level 102 mmol/L (98-107) Carbon Dioxide Level 30 mmol/L (21-32) Anion Gap 8 (6-14) Blood Urea Nitrogen 12 mg/dL (8-26) Creatinine 0.8 mg/dL (0.7-1.3) Estimated GFR (Cockcroft-Gault) 93.5 BUN/Creatinine Ratio 15 (6-20) Glucose Level 163 mg/dL (70-99) Calcium Level 9.1 mg/dL (8.5-10.1) Total Bilirubin 0.8 mg/dL (0.2-1.0) Aspartate Amino Transf (AST/SGOT) 22 U/L (15-37) Alanine Aminotransferase (ALT/SGPT) 19 U/L (16-63) Alkaline Phosphatase 79 U/L (46-116) Total Protein 6.8 g/dL (6.4-8.2) Albumin 3.4 g/dL (3.4-5.0) Albumin/Globulin Ratio 1.0 (1.0-1.7) Test 09/28/18 07:29 Glucose (Fingerstick) 133 mg/dL (70-99) Assessment and Plan Assessmemt and Plan Problems Medical Problems: (1) Fall Status: Acute (2) Generalized weakness Status: Acute Comment Review of Relevant I have reviewed the following items randolph (where applicable) has been applied. Labs Laboratory Tests Test 09/26/18 11:41 09/26/18 16:55 09/26/18 20:34 09/27/18 07:54 Glucose (Fingerstick) 107 mg/dL (70-99) 98 mg/dL (70-99) 132 mg/dL (70-99) 133 mg/dL (70-99) Test 09/27/18 11:13 09/27/18 16:23 09/27/18 22:27 09/28/18 04:45 Glucose (Fingerstick) 126 mg/dL (70-99) 136 mg/dL (70-99) 118 mg/dL (70-99) White Blood Count 7.2 x10^3/uL (4.0-11.0) Red Blood Count 4.40 x10^6/uL (4.30-5.70) Hemoglobin 12.7 g/dL (13.0-17.5) Hematocrit 38.4 % (39.0-53.0) Mean Corpuscular Volume 87 fL (79-100) Mean Corpuscular Hemoglobin 29 pg (25-35) Mean Corpuscular Hemoglobin Concent 33 g/dL (31-37) Red Cell Distribution Width 14.0 % (11.5-14.5) Platelet Count 187 x10^3/uL (140-400) Neutrophils (%) (Auto) 73 % (31-73) Lymphocytes (%) (Auto) 14 % (24-48) Monocytes (%) (Auto) 9 % (0-9) Eosinophils (%) (Auto) 3 % (0-3) Basophils (%) (Auto) 1 % (0-3) Neutrophils # (Auto) 5.3 x10^3uL (1.8-7.7) Lymphocytes # (Auto) 1.0 x10^3/uL (1.0-4.8) Monocytes # (Auto) 0.6 x10^3/uL (0.0-1.1) Eosinophils # (Auto) 0.2 x10^3/uL (0.0-0.7) Basophils # (Auto) 0.0 x10^3/uL (0.0-0.2) Sodium Level 140 mmol/L (136-145) Potassium Level 3.4 mmol/L (3.5-5.1) Chloride Level 102 mmol/L (98-107) Carbon Dioxide Level 30 mmol/L (21-32) Anion Gap 8 (6-14) Blood Urea Nitrogen 12 mg/dL (8-26) Creatinine 0.8 mg/dL (0.7-1.3) Estimated GFR (Cockcroft-Gault) 93.5 BUN/Creatinine Ratio 15 (6-20) Glucose Level 163 mg/dL (70-99) Calcium Level 9.1 mg/dL (8.5-10.1) Total Bilirubin 0.8 mg/dL (0.2-1.0) Aspartate Amino Transf (AST/SGOT) 22 U/L (15-37) Alanine Aminotransferase (ALT/SGPT) 19 U/L (16-63) Alkaline Phosphatase 79 U/L (46-116) Total Protein 6.8 g/dL (6.4-8.2) Albumin 3.4 g/dL (3.4-5.0) Albumin/Globulin Ratio 1.0 (1.0-1.7) Test 09/28/18 07:29 Glucose (Fingerstick) 133 mg/dL (70-99) Laboratory Tests Test 09/27/18 11:13 09/27/18 16:23 09/27/18 22:27 09/28/18 04:45 Glucose (Fingerstick) 126 mg/dL (70-99) 136 mg/dL (70-99) 118 mg/dL (70-99) White Blood Count 7.2 x10^3/uL (4.0-11.0) Red Blood Count 4.40 x10^6/uL (4.30-5.70) Hemoglobin 12.7 g/dL (13.0-17.5) Hematocrit 38.4 % (39.0-53.0) Mean Corpuscular Volume 87 fL (79-100) Mean Corpuscular Hemoglobin 29 pg (25-35) Mean Corpuscular Hemoglobin Concent 33 g/dL (31-37) Red Cell Distribution Width 14.0 % (11.5-14.5) Platelet Count 187 x10^3/uL (140-400) Neutrophils (%) (Auto) 73 % (31-73) Lymphocytes (%) (Auto) 14 % (24-48) Monocytes (%) (Auto) 9 % (0-9) Eosinophils (%) (Auto) 3 % (0-3) Basophils (%) (Auto) 1 % (0-3) Neutrophils # (Auto) 5.3 x10^3uL (1.8-7.7) Lymphocytes # (Auto) 1.0 x10^3/uL (1.0-4.8) Monocytes # (Auto) 0.6 x10^3/uL (0.0-1.1) Eosinophils # (Auto) 0.2 x10^3/uL (0.0-0.7) Basophils # (Auto) 0.0 x10^3/uL (0.0-0.2) Sodium Level 140 mmol/L (136-145) Potassium Level 3.4 mmol/L (3.5-5.1) Chloride Level 102 mmol/L (98-107) Carbon Dioxide Level 30 mmol/L (21-32) Anion Gap 8 (6-14) Blood Urea Nitrogen 12 mg/dL (8-26) Creatinine 0.8 mg/dL (0.7-1.3) Estimated GFR (Cockcroft-Gault) 93.5 BUN/Creatinine Ratio 15 (6-20) Glucose Level 163 mg/dL (70-99) Calcium Level 9.1 mg/dL (8.5-10.1) Total Bilirubin 0.8 mg/dL (0.2-1.0) Aspartate Amino Transf (AST/SGOT) 22 U/L (15-37) Alanine Aminotransferase (ALT/SGPT) 19 U/L (16-63) Alkaline Phosphatase 79 U/L (46-116) Total Protein 6.8 g/dL (6.4-8.2) Albumin 3.4 g/dL (3.4-5.0) Albumin/Globulin Ratio 1.0 (1.0-1.7) Test 09/28/18 07:29 Glucose (Fingerstick) 133 mg/dL (70-99) Medications Current Medications Ondansetron HCl (Zofran) 4 mg PRN Q8HRS PRN IV NAUSEA/VOMITING Last administered on 09/24/18 22:33; Start 09/24/18 at 17:45; Stop 09/25/18 at 17:44 ; Status DC Sodium Chloride 1,000 ml @ 100 mls/hr Q10H IV Last administered on 09/25/18at 17:15; Start 09/24/18 at 17:37; Stop 09/25/18 at 17:36; Status DC Aspirin (Children'S Aspirin) 81 mg HS PO Last administered on 09/27/18 22:20; Start 09/25/18 at 21:00 Doxazosin Mesylate (Cardura) 4 mg HS PO Last administered on 09/27/18 22:23; Start 09/25/18 at 21:00 Finasteride (Proscar) 5 mg HS PO Last administered on 09/27/18at 22:20; Start at 21:00 Lisinopril (Prinivil) 40 mg BID PO Last administered on 09/28/18 09:08; Start 09/25/18 at 09:00 Losartan Potassium (Cozaar) 50 mg DAILY PO Last administered on 09/28/18 09:07 ; Start 09/25/18 at 09:00 Fish Oil (Fish Oil) 1,000 mg HS PO Last administered on 09/27/18 22:19; Start 09/25/18 at 21:00 Donepezil HCl (Aricept) 10 mg HS PO Last administered on 09/27/18at 22:20; Start 09/25/18 at 21:00 Memantine (Namenda) 10 mg BID PO Last administered on 09/28/18 09:06; Start at 09:00 Multivitamins (Thera M Plus) 1 tab DAILY PO Last administered on 09/28/18at 09: 06; Start 09/25/18 at 09:00 Metoprolol Tartrate (Lopressor) 25 mg BID PO ; Start 09/25/18 at 09:00; Stop at 10:29; Status DC Sertraline HCl (Zoloft) 100 mg BID PO Last administered on 09/28/18at 09:06; Start 09/25/18 at 09:00 Insulin Human Lispro (HumaLOG) 0-7 UNITS Q6HRS SQ ; Start 09/25/18 at 00:00; Stop 09/25/18 at 16:28; Status DC Dextrose (Dextrose 50%-Water Syringe) 12.5 gm PRN Q15MIN PRN IV SEE COMMENTS; Start 09/24/18 at 23:45 Nystatin (Nystop) 1 bart BID TP Last administered on 09/28/18at 09:08; Start at 09:00 Insulin Human Lispro (HumaLOG) 0-7 UNITS QIDACHS SQ ; Start 09/25/18 at 16:30 Acetaminophen (Tylenol) 500 mg PRN Q6HRS PRN PO MILD PAIN / TEMP; Start at 19:30 Ondansetron HCl (Zofran) 4 mg PRN Q6HRS PRN IV NAUSEA/VOMITING; Start 09/25/18 at 19:30 Ondansetron HCl (Zofran Odt) 4 mg PRN Q6HRS PRN PO NAUSEA/VOMITING; Start 09/25 at 19:30 Haloperidol Lactate (HALDOL 2mg ORAL CONC) 2 mg PRN Q6HRS PRN PO AGITATION/ PSYCHOSIS Last administered on 09/25/18at 20:43; Start 09/25/18 at 19:30 Lorazepam (Ativan) 2 mg PRN Q4HRS PRN IV ANXIETY / AGITATION Last administered on 09/26/18at 18:33; Start 09/25/18 at 19:30 Lorazepam (Ativan) 2 mg PRN Q4HRS PRN PO AGITATION Last administered on at 22:18; Start 09/26/18 at 22:30 Amlodipine Besylate (Norvasc) 10 mg QHS PO Last administered on 09/27/18at 22:20 ; Start 09/27/18 at 21:00 Amlodipine Besylate (Norvasc) 10 mg 1X ONCE PO Last administered on 09/26/18at 23:22; Start 09/26/18 at 23:30; Stop 09/26/18 at 23:31; Status DC Hydralazine HCl (Apresoline) 50 mg PRN TID PRN PO ELEVATED BP, SEE COMMENTS Last administered on 09/27/18at 04:18; Start 09/27/18 at 04:00 Active Scripts Active Reported Coricidin Hbp Cough & Cold Tab (Dextromethorphan Hbr/Chlor-Mal) 1 Each Tablet 1 Each PO Aspirin 81 Mg Tab.chew 1 Tab PO HS Multivitamins (Multivitamin) 1 Each Tablet 1 Tab PO DAILY Fish Oil 1,000 Mg Capsule ([place]-3 Fatty Acids/Fish Oil) 1 Each Capsule 1 Each PO HS Losartan Potassium 100 Mg Tablet 100 Mg PO BID Losartan Potassium 50 Mg Tablet 50 Mg PO DAILY Zoloft (Sertraline Hcl) 100 Mg Tablet 1 Tab PO BID Zoloft (Sertraline Hcl) 100 Mg Tablet 100 Mg PO BID Finasteride 5 Mg Tablet 5 Mg PO HS Doxazosin Mesylate 4 Mg Tablet 4 Mg PO HS Namenda (Memantine Hcl) 10 Mg Tablet 10 Mg PO BID Donepezil Hcl 10 Mg Tablet 10 Mg PO HS Bystolic (Nebivolol) 5 Mg Tablet 5 Mg PO DAILY Glyburide 5 Mg Tablet 1 Tab PO BID Metformin Hcl 500 Mg Tablet 500 Mg PO BIDWMEALS Lisinopril 40 Mg Tablet 40 Mg PO BID Lorazepam 1 Mg Tablet 1 Tab PO TID Vitals/I & O Vital Sign - Last 24 Hours 09/27/18 09/27/18 09/27/18 09/27/18 11:23 15:21 19:00 20:00 Temp 97.5 97.3 98.0 97.5 97.3 98.0 Pulse 53 84 56 Resp 20 20 18 B/P (MAP) 143/68 (93) 144/68 (93) 135/90 (105) Pulse Ox 97 94 O2 Delivery Room Air Room Air Room Air O2 Flow Rate 92.0 09/27/18 09/27/18 09/27/18 09/27/18 22:19 22:20 22:23 23:00 Temp 98.5 98.5 Pulse 84 84 84 69 Resp 18 B/P (MAP) 151/68 151/68 151/68 128/87 (101) Pulse Ox 93 O2 Delivery Room Air 09/28/18 09/28/18 09/28/18 09/28/18 03:00 07:00 08:30 09:07 Temp 98.0 98.2 98.0 98.2 Pulse 58 64 64 Resp 18 18 B/P (MAP) 130/85 (100) 166/85 (112) 166/85 Pulse Ox 96 96 O2 Delivery Room Air Room Air Room Air 09/28/18 09:08 Pulse 64 B/P (MAP) 166/85 Intake and Output 09/27/18 09/27/18 09/28/18 15:01 23:01 07:01 Intake Total 530 ml 280 ml Balance 530 ml 280 ml BERNARDO TAYLOR MD Sep 28, 2018 10:42
[2018-09-28 11:00] VITALS: BP 154/96
--- NOTE | 2018-09-28 11:15 | NUR ---
SW following. Spoke with Ember at [facility] and requested her to call pt's regarding DPOA paperwork. has informed Ember she has POA paperwork which she will have 'someone bring her a copy of it' today at 1400. Pt's aware to provide DPOA documents to SW. SW will continue to follow. ANKUR CAPPS.
[2018-09-28 15:15] VITALS: BP 169/88
--- NOTE | 2018-09-28 15:47 | PDOC3 ---
Discharge Summary Date of Admission: Sep 24, 2018 Date of Discharge: Sep 28, 2018 Follow-Up: 1-2 days Admitting Diagnosis comment: discharge dx Chief Complaint nausea and Vomiting - improved weakness and debility, Fall at home - PT/OT Aflutter - new, rate control. With his fall he is high risk for anticoagulation. Will consult cardiology for further recs Alzheimer dementia - acute on chronic encephalopathy, confusion with symptoms DM2 - Hypertension. Blood pressure is under fair control. History of Present Illness History of Present Illness confused earlier calm now will try clear liquid diet plan [facility] bed 09/29 Vitals Vitals Vital Signs Date Time Temp Pulse Resp B/P (MAP) Pulse Ox O2 Delivery O2 Flow Rate FiO2 09/28/18 09:08 64 166/85 09/28/18 08:30 Room Air 09/28/18 07:00 98.2 18 96 98.2 09/27/18 20:00 92.0 Physical Exam Physical Exam easily aroused Eyes: PERRLA, EOMI, conjunctiva normal, no discharge. [] Neck: Normal range of motion, no tenderness, supple, no stridor. [] Cardiovascular:Heart rate regular rhythm, no murmur [] Lungs & Thorax: Bilateral breath sounds clear to auscultation [] Abdomen: Bowel sounds normal, soft, no tenderness, no masses, no pulsatile masses. [] Skin: Warm, dry, no erythema, no rash. [] Back: No tenderness, no CVA tenderness. [] Extremities: No tenderness, no cyanosis, no clubbing, ROM intact, no edema. No pain with passive range of motion of the hips. Neurologic: Awake not oriented , baseline General: Alert, Cooperative, No acute distress Heart: Regular rate Lungs: Clear Abdomen: Normal bowel sounds, Soft Extremities: No clubbing, No cyanosis, No edema, Normal pulses, No tenderness/ swelling Skin: No rashes, No breakdown, No significant lesion FINAL DIAGNOSIS Problems Medical Problems: (1) Fall Status: Acute (2) Generalized weakness Status: Acute Brief Hospital Course Mr. Shell is a 78 old [sex] who presented with [falls, confusion ] CONDITION AT DISCHARGE: Improved Discharge Medications Current Medications Ondansetron HCl (Zofran) 4 mg PRN Q8HRS PRN IV NAUSEA/VOMITING Last administered on 09/24/18 22:33; Start 09/24/18 at 17:45; Stop 09/25/18 at 17:44 ; Status DC Sodium Chloride 1,000 ml @ 100 mls/hr Q10H IV Last administered on 09/25/18at 17:15; Start 09/24/18 at 17:37; Stop 09/25/18 at 17:36; Status DC Aspirin (Children'S Aspirin) 81 mg HS PO Last administered on 09/27/18 22:20; Start 09/25/18 at 21:00 Doxazosin Mesylate (Cardura) 4 mg HS PO Last administered on 09/27/18 22:23; Start 09/25/18 at 21:00 Finasteride (Proscar) 5 mg HS PO Last administered on 09/27/18 22:20; Start at 21:00 Lisinopril (Prinivil) 40 mg BID PO Last administered on 09/28/18 09:08; Start 09/25/18 at 09:00 Losartan Potassium (Cozaar) 50 mg DAILY PO Last administered on 09/28/18 09:07 ; Start 09/25/18 at 09:00 Fish Oil (Fish Oil) 1,000 mg HS PO Last administered on 09/27/18 22:19; Start 09/25/18 at 21:00 Donepezil HCl (Aricept) 10 mg HS PO Last administered on 09/27/18 22:20; Start 09/25/18 at 21:00 Memantine (Namenda) 10 mg BID PO Last administered on 09/28/18 09:06; Start at 09:00 Multivitamins (Thera M Plus) 1 tab DAILY PO Last administered on 09/28/18 09: 06; Start 09/25/18 at 09:00 Metoprolol Tartrate (Lopressor) 25 mg BID PO ; Start 09/25/18 at 09:00; Stop at 10:29; Status DC Sertraline HCl (Zoloft) 100 mg BID PO Last administered on 09/28/18 09:06; Start 09/25/18 at 09:00 Insulin Human Lispro (HumaLOG) 0-7 UNITS Q6HRS SQ ; Start 09/25/18 at 00:00; Stop 09/25/18 at 16:28; Status DC Dextrose (Dextrose 50%-Water Syringe) 12.5 gm PRN Q15MIN PRN IV SEE COMMENTS; Start 09/24/18 at 23:45 Nystatin (Nystop) 1 bart BID TP Last administered on 09/28/18at 09:08; Start at 09:00 Insulin Human Lispro (HumaLOG) 0-7 UNITS QIDACHS SQ ; Start 09/25/18 at 16:30 Acetaminophen (Tylenol) 500 mg PRN Q6HRS PRN PO MILD PAIN / TEMP; Start at 19:30 Ondansetron HCl (Zofran) 4 mg PRN Q6HRS PRN IV NAUSEA/VOMITING; Start 09/25/18 at 19:30 Ondansetron HCl (Zofran Odt) 4 mg PRN Q6HRS PRN PO NAUSEA/VOMITING; Start 09/25 at 19:30 Haloperidol Lactate (HALDOL 2mg ORAL CONC) 2 mg PRN Q6HRS PRN PO AGITATION/ PSYCHOSIS Last administered on 09/25/18at 20:43; Start 09/25/18 at 19:30 Lorazepam (Ativan) 2 mg PRN Q4HRS PRN IV ANXIETY / AGITATION Last administered on 09/26/18at 18:33; Start 09/25/18 at 19:30 Lorazepam (Ativan) 2 mg PRN Q4HRS PRN PO AGITATION Last administered on at 22:18; Start 09/26/18 at 22:30 Amlodipine Besylate (Norvasc) 10 mg QHS PO Last administered on 09/27/18at 22:20 ; Start 09/27/18 at 21:00 Amlodipine Besylate (Norvasc) 10 mg 1X ONCE PO Last administered on 09/26/18at 23:22; Start 09/26/18 at 23:30; Stop 09/26/18 at 23:31; Status DC Hydralazine HCl (Apresoline) 50 mg PRN TID PRN PO ELEVATED BP, SEE COMMENTS Last administered on 09/27/18at 04:18; Start 09/27/18 at 04:00 Active Scripts Active Reported Coricidin Hbp Cough & Cold Tab (Dextromethorphan Hbr/Chlor-Mal) 1 Each Tablet 1 Each PO Aspirin 81 Mg Tab.chew 1 Tab PO HS Multivitamins (Multivitamin) 1 Each Tablet 1 Tab PO DAILY Fish Oil 1,000 Mg Capsule ([place]-3 Fatty Acids/Fish Oil) 1 Each Capsule 1 Each PO HS Losartan Potassium 100 Mg Tablet 100 Mg PO BID Losartan Potassium 50 Mg Tablet 50 Mg PO DAILY Zoloft (Sertraline Hcl) 100 Mg Tablet 1 Tab PO BID Zoloft (Sertraline Hcl) 100 Mg Tablet 100 Mg PO BID Finasteride 5 Mg Tablet 5 Mg PO HS Doxazosin Mesylate 4 Mg Tablet 4 Mg PO HS Namenda (Memantine Hcl) 10 Mg Tablet 10 Mg PO BID Donepezil Hcl 10 Mg Tablet 10 Mg PO HS Bystolic (Nebivolol) 5 Mg Tablet 5 Mg PO DAILY Glyburide 5 Mg Tablet 1 Tab PO BID Metformin Hcl 500 Mg Tablet 500 Mg PO BIDWMEALS Lisinopril 40 Mg Tablet 40 Mg PO BID Lorazepam 1 Mg Tablet 1 Tab PO TID Vital Signs Vital Signs Date Time Temp Pulse Resp B/P (MAP) Pulse Ox O2 Delivery O2 Flow Rate FiO2 09/28/18 15:15 98.8 58 18 169/88 (115) 90 Room Air 98.8 09/27/18 20:00 92.0 Labs Laboratory Tests Test 09/26/18 16:55 09/26/18 20:34 09/27/18 07:54 09/27/18 11:13 Glucose (Fingerstick) 98 mg/dL (70-99) 132 mg/dL (70-99) 133 mg/dL (70-99) 126 mg/dL (70-99) Test 09/27/18 16:23 09/27/18 22:27 09/28/18 04:45 09/28/18 07:29 Glucose (Fingerstick) 136 mg/dL (70-99) 118 mg/dL (70-99) 133 mg/dL (70-99) White Blood Count 7.2 x10^3/uL (4.0-11.0) Red Blood Count 4.40 x10^6/uL (4.30-5.70) Hemoglobin 12.7 g/dL (13.0-17.5) Hematocrit 38.4 % (39.0-53.0) Mean Corpuscular Volume 87 fL (79-100) Mean Corpuscular Hemoglobin 29 pg (25-35) Mean Corpuscular Hemoglobin Concent 33 g/dL (31-37) Red Cell Distribution Width 14.0 % (11.5-14.5) Platelet Count 187 x10^3/uL (140-400) Neutrophils (%) (Auto) 73 % (31-73) Lymphocytes (%) (Auto) 14 % (24-48) Monocytes (%) (Auto) 9 % (0-9) Eosinophils (%) (Auto) 3 % (0-3) Basophils (%) (Auto) 1 % (0-3) Neutrophils # (Auto) 5.3 x10^3uL (1.8-7.7) Lymphocytes # (Auto) 1.0 x10^3/uL (1.0-4.8) Monocytes # (Auto) 0.6 x10^3/uL (0.0-1.1) Eosinophils # (Auto) 0.2 x10^3/uL (0.0-0.7) Basophils # (Auto) 0.0 x10^3/uL (0.0-0.2) Sodium Level 140 mmol/L (136-145) Potassium Level 3.4 mmol/L (3.5-5.1) Chloride Level 102 mmol/L (98-107) Carbon Dioxide Level 30 mmol/L (21-32) Anion Gap 8 (6-14) Blood Urea Nitrogen 12 mg/dL (8-26) Creatinine 0.8 mg/dL (0.7-1.3) Estimated GFR (Cockcroft-Gault) 93.5 BUN/Creatinine Ratio 15 (6-20) Glucose Level 163 mg/dL (70-99) Calcium Level 9.1 mg/dL (8.5-10.1) Total Bilirubin 0.8 mg/dL (0.2-1.0) Aspartate Amino Transf (AST/SGOT) 22 U/L (15-37) Alanine Aminotransferase (ALT/SGPT) 19 U/L (16-63) Alkaline Phosphatase 79 U/L (46-116) Total Protein 6.8 g/dL (6.4-8.2) Albumin 3.4 g/dL (3.4-5.0) Albumin/Globulin Ratio 1.0 (1.0-1.7) Test 09/28/18 11:26 Glucose (Fingerstick) 132 mg/dL (70-99) Laboratory Tests Test 09/27/18 16:23 09/27/18 22:27 09/28/18 04:45 09/28/18 07:29 Glucose (Fingerstick) 136 mg/dL (70-99) 118 mg/dL (70-99) 133 mg/dL (70-99) White Blood Count 7.2 x10^3/uL (4.0-11.0) Red Blood Count 4.40 x10^6/uL (4.30-5.70) Hemoglobin 12.7 g/dL (13.0-17.5) Hematocrit 38.4 % (39.0-53.0) Mean Corpuscular Volume 87 fL (79-100) Mean Corpuscular Hemoglobin 29 pg (25-35) Mean Corpuscular Hemoglobin Concent 33 g/dL (31-37) Red Cell Distribution Width 14.0 % (11.5-14.5) Platelet Count 187 x10^3/uL (140-400) Neutrophils (%) (Auto) 73 % (31-73) Lymphocytes (%) (Auto) 14 % (24-48) Monocytes (%) (Auto) 9 % (0-9) Eosinophils (%) (Auto) 3 % (0-3) Basophils (%) (Auto) 1 % (0-3) Neutrophils # (Auto) 5.3 x10^3uL (1.8-7.7) Lymphocytes # (Auto) 1.0 x10^3/uL (1.0-4.8) Monocytes # (Auto) 0.6 x10^3/uL (0.0-1.1) Eosinophils # (Auto) 0.2 x10^3/uL (0.0-0.7) Basophils # (Auto) 0.0 x10^3/uL (0.0-0.2) Sodium Level 140 mmol/L (136-145) Potassium Level 3.4 mmol/L (3.5-5.1) Chloride Level 102 mmol/L (98-107) Carbon Dioxide Level 30 mmol/L (21-32) Anion Gap 8 (6-14) Blood Urea Nitrogen 12 mg/dL (8-26) Creatinine 0.8 mg/dL (0.7-1.3) Estimated GFR (Cockcroft-Gault) 93.5 BUN/Creatinine Ratio 15 (6-20) Glucose Level 163 mg/dL (70-99) Calcium Level 9.1 mg/dL (8.5-10.1) Total Bilirubin 0.8 mg/dL (0.2-1.0) Aspartate Amino Transf (AST/SGOT) 22 U/L (15-37) Alanine Aminotransferase (ALT/SGPT) 19 U/L (16-63) Alkaline Phosphatase 79 U/L (46-116) Total Protein 6.8 g/dL (6.4-8.2) Albumin 3.4 g/dL (3.4-5.0) Albumin/Globulin Ratio 1.0 (1.0-1.7) Test 09/28/18 11:26 Glucose (Fingerstick) 132 mg/dL (70-99) Allergies Allergies Coded Allergies Type Severity Reaction Last Updated Verified morphine Allergy Intermediate 09/24/18 Yes Disposition/Orders: Other (to [facility]) Patient Instructions d/c planning 38 min BERNARDO TAYLOR MD Sep 28, 2018 15:47
--- NOTE | 2018-09-28 15:50 | NUR ---
[facility] following. Pt verbalized understanding for DPOA paper and signed documents. Paper notarized by [facility] and original/copies given to pt's . A copy also placed on pt's chart. [facility] faxed DPOA paper to [facility]. Ember at [facility] reported they will be able to take pt tomorrow morning as they are short staffed today. ANKUR RN and Physician.
[2018-09-28] MEDS: LORazepam 1 MG TABLET PO PRN (17:38)
--- NOTE | 2018-09-28 18:18 | NUR ---
Tele ordered, pt confused, will not keep on
[2018-09-28 19:00] VITALS: BP 99/59
[2018-09-28] MEDS: DOXAZOSIN MESYLATE 4 MG TABLET. PO SCH (21:20)
[2018-09-28] MEDS: FINASTERIDE 5 MG TABLET. PO SCH (21:20)
[2018-09-28] MEDS: DONEPEZIL HCL 10 MG TABLET. PO SCH (21:21)
[2018-09-28] MEDS: OMEGA-3 FATTY ACIDS/FISH OIL 1,000 MG CAPSULE. PO SCH (21:21)
[2018-09-28] MEDS: ASPIRIN CHEWABLE 81 MG TABLET. PO SCH (21:21)
[2018-09-28] MEDS: amLODIPine BESYLATE 10 MG TABLET PO SCH (21:22)
[2018-09-28 23:00] VITALS: BP 144/76
[2018-09-29 03:00] VITALS: BP 119/64
[2018-09-29 07:00] VITALS: BP 95/41
[2018-09-29] MEDS: INSULIN LISPRO 300 UNITS/3 ML INSULN.PEN. SQ SCH (07:30)
[2018-09-29] MEDS: LOSARTAN POTASSIUM 50 MG TABLET. PO SCH ×2 (08:40→11:48)
[2018-09-29] MEDS: LISINOPRIL 20 MG TABLET PO SCH ×2 (08:40→11:47)
[2018-09-29] MEDS: SERTRALINE 50 MG TABLET. PO SCH (08:42)
[2018-09-29] MEDS: MEMANTINE 10 MG TABLET. PO SCH (08:43)
[2018-09-29] MEDS: MULTIVITAMIN with MINERAL TABLET. PO SCH (08:43)
[2018-09-29] MEDS: NYSTATIN TOPICAL POWDER 15GM BOTTLE. TP SCH (08:43)
[2018-09-29 09:25] VITALS: BP 129/66
[2018-09-29 11:00] VITALS: BP 143/80
--- NOTE | 2018-09-29 11:06 | NUR ---
[facility]IA following pt. [facility] phoned and faxed orders to [facility]. Pt will transport via [facility] at 1200. Pt's aware of plan and agreeable. Packet on chart. ANKUR CAPPS.
--- NOTE | 2018-09-29 11:43 | PDOC ---
PROGRESS NOTES Chief Complaint Chief Complaint nausea and Vomiting - improved weakness and debility, Fall at home - PT/OT Aflutter - new, rate control. With his fall he is high risk for anticoagulation. Alzheimer dementia - acute on chronic encephalopathy, confusion with symptoms DM2 - Hypertension. Blood pressure is under fair control. to [facility]/ [facility] today History of Present Illness History of Present Illness confused earlier calm now will try clear liquid diet plan [facility] bed pending Vitals Vitals Vital Signs Date Time Temp Pulse Resp B/P (MAP) Pulse Ox O2 Delivery O2 Flow Rate FiO2 09/29/18 11:00 98.4 73 17 143/80 (101) 95 Room Air 98.4 Physical Exam Physical Exam easily aroused Eyes: PERRLA, EOMI, conjunctiva normal, no discharge. [] Neck: Normal range of motion, no tenderness, supple, no stridor. [] Cardiovascular:Heart rate regular rhythm, no murmur [] Lungs & Thorax: Bilateral breath sounds clear to auscultation [] Abdomen: Bowel sounds normal, soft, no tenderness, no masses, no pulsatile masses. [] Skin: Warm, dry, no erythema, no rash. [] Back: No tenderness, no CVA tenderness. [] Extremities: No tenderness, no cyanosis, no clubbing, ROM intact, no edema. No pain with passive range of motion of the hips. Neurologic: Awake not oriented , baseline General: Alert, Cooperative, No acute distress Heart: Regular rate, Normal S1 Lungs: Clear Abdomen: Normal bowel sounds, Soft, No tenderness, No hepatosplenomegaly Extremities: No clubbing, No cyanosis, No edema, Normal pulses, No tenderness/ swelling Skin: No rashes, No breakdown, No significant lesion Labs LABS Laboratory Tests Test 09/28/18 16:09 09/28/18 20:42 09/29/18 07:13 09/29/18 11:35 Glucose (Fingerstick) 121 mg/dL (70-99) 217 mg/dL (70-99) 141 mg/dL (70-99) 159 mg/dL (70-99) Assessment and Plan Assessmemt and Plan Problems Medical Problems: (1) Fall Status: Acute (2) Generalized weakness Status: Acute Comment Review of Relevant I have reviewed the following items randolph (where applicable) has been applied. Labs Laboratory Tests Test 09/27/18 16:23 09/27/18 22:27 09/28/18 04:45 09/28/18 07:29 Glucose (Fingerstick) 136 mg/dL (70-99) 118 mg/dL (70-99) 133 mg/dL (70-99) White Blood Count 7.2 x10^3/uL (4.0-11.0) Red Blood Count 4.40 x10^6/uL (4.30-5.70) Hemoglobin 12.7 g/dL (13.0-17.5) Hematocrit 38.4 % (39.0-53.0) Mean Corpuscular Volume 87 fL (79-100) Mean Corpuscular Hemoglobin 29 pg (25-35) Mean Corpuscular Hemoglobin Concent 33 g/dL (31-37) Red Cell Distribution Width 14.0 % (11.5-14.5) Platelet Count 187 x10^3/uL (140-400) Neutrophils (%) (Auto) 73 % (31-73) Lymphocytes (%) (Auto) 14 % (24-48) Monocytes (%) (Auto) 9 % (0-9) Eosinophils (%) (Auto) 3 % (0-3) Basophils (%) (Auto) 1 % (0-3) Neutrophils # (Auto) 5.3 x10^3uL (1.8-7.7) Lymphocytes # (Auto) 1.0 x10^3/uL (1.0-4.8) Monocytes # (Auto) 0.6 x10^3/uL (0.0-1.1) Eosinophils # (Auto) 0.2 x10^3/uL (0.0-0.7) Basophils # (Auto) 0.0 x10^3/uL (0.0-0.2) Sodium Level 140 mmol/L (136-145) Potassium Level 3.4 mmol/L (3.5-5.1) Chloride Level 102 mmol/L (98-107) Carbon Dioxide Level 30 mmol/L (21-32) Anion Gap 8 (6-14) Blood Urea Nitrogen 12 mg/dL (8-26) Creatinine 0.8 mg/dL (0.7-1.3) Estimated GFR (Cockcroft-Gault) 93.5 BUN/Creatinine Ratio 15 (6-20) Glucose Level 163 mg/dL (70-99) Calcium Level 9.1 mg/dL (8.5-10.1) Total Bilirubin 0.8 mg/dL (0.2-1.0) Aspartate Amino Transf (AST/SGOT) 22 U/L (15-37) Alanine Aminotransferase (ALT/SGPT) 19 U/L (16-63) Alkaline Phosphatase 79 U/L (46-116) Total Protein 6.8 g/dL (6.4-8.2) Albumin 3.4 g/dL (3.4-5.0) Albumin/Globulin Ratio 1.0 (1.0-1.7) Test 09/28/18 11:26 09/28/18 16:09 09/28/18 20:42 09/29/18 07:13 Glucose (Fingerstick) 132 mg/dL (70-99) 121 mg/dL (70-99) 217 mg/dL (70-99) 141 mg/dL (70-99) Test 09/29/18 11:35 Glucose (Fingerstick) 159 mg/dL (70-99) Laboratory Tests Test 09/28/18 16:09 09/28/18 20:42 09/29/18 07:13 09/29/18 11:35 Glucose (Fingerstick) 121 mg/dL (70-99) 217 mg/dL (70-99) 141 mg/dL (70-99) 159 mg/dL (70-99) Medications Current Medications Ondansetron HCl (Zofran) 4 mg PRN Q8HRS PRN IV NAUSEA/VOMITING Last administered on 09/24/18at 22:33; Start 09/24/18 at 17:45; Stop 09/25/18 at 17:44 ; Status DC Sodium Chloride 1,000 ml @ 100 mls/hr Q10H IV Last administered on 09/25/18at 17:15; Start 09/24/18 at 17:37; Stop 09/25/18 at 17:36; Status DC Aspirin (Children'S Aspirin) 81 mg HS PO Last administered on 09/28/18at 21:21; Start 09/25/18 at 21:00 Doxazosin Mesylate (Cardura) 4 mg HS PO Last administered on 09/28/18at 21:20; Start 09/25/18 at 21:00 Finasteride (Proscar) 5 mg HS PO Last administered on 09/28/18 21:20; Start at 21:00 Lisinopril (Prinivil) 40 mg BID PO Last administered on 09/28/18at 21:21; Start 09/25/18 at 09:00 Losartan Potassium (Cozaar) 50 mg DAILY PO Last administered on 09/28/18 09:07 ; Start 09/25/18 at 09:00 Fish Oil (Fish Oil) 1,000 mg HS PO Last administered on 09/28/18 21:21; Start 09/25/18 at 21:00 Donepezil HCl (Aricept) 10 mg HS PO Last administered on 09/28/18 21:21; Start 09/25/18 at 21:00 Memantine (Namenda) 10 mg BID PO Last administered on 09/29/18 08:43; Start at 09:00 Multivitamins (Thera M Plus) 1 tab DAILY PO Last administered on 09/29/18 08: 43; Start 09/25/18 at 09:00 Metoprolol Tartrate (Lopressor) 25 mg BID PO ; Start 09/25/18 at 09:00; Stop at 10:29; Status DC Sertraline HCl (Zoloft) 100 mg BID PO Last administered on 09/29/18 08:42; Start 09/25/18 at 09:00 Insulin Human Lispro (HumaLOG) 0-7 UNITS Q6HRS SQ ; Start 09/25/18 at 00:00; Stop 09/25/18 at 16:28; Status DC Dextrose (Dextrose 50%-Water Syringe) 12.5 gm PRN Q15MIN PRN IV SEE COMMENTS; Start 09/24/18 at 23:45 Nystatin (Nystop) 1 bart BID TP Last administered on 09/29/18 08:43; Start at 09:00 Insulin Human Lispro (HumaLOG) 0-7 UNITS QIDACHS SQ Last administered on 21:34; Start 09/25/18 at 16:30 Acetaminophen (Tylenol) 500 mg PRN Q6HRS PRN PO MILD PAIN / TEMP; Start at 19:30 Ondansetron HCl (Zofran) 4 mg PRN Q6HRS PRN IV NAUSEA/VOMITING; Start 09/25/18 at 19:30 Ondansetron HCl (Zofran Odt) 4 mg PRN Q6HRS PRN PO NAUSEA/VOMITING; Start 09/25 at 19:30 Haloperidol Lactate (HALDOL 2mg ORAL CONC) 2 mg PRN Q6HRS PRN PO AGITATION/ PSYCHOSIS Last administered on 09/25/18at 20:43; Start 09/25/18 at 19:30 Lorazepam (Ativan) 2 mg PRN Q4HRS PRN IV ANXIETY / AGITATION Last administered on 09/26/18at 18:33; Start 09/25/18 at 19:30 Lorazepam (Ativan) 2 mg PRN Q4HRS PRN PO AGITATION Last administered on at 17:38; Start 09/26/18 at 22:30 Amlodipine Besylate (Norvasc) 10 mg QHS PO Last administered on 09/28/18at 21:22 ; Start 09/27/18 at 21:00 Amlodipine Besylate (Norvasc) 10 mg 1X ONCE PO Last administered on 09/26/18at 23:22; Start 09/26/18 at 23:30; Stop 09/26/18 at 23:31; Status DC Hydralazine HCl (Apresoline) 50 mg PRN TID PRN PO ELEVATED BP, SEE COMMENTS Last administered on 09/27/18at 04:18; Start 09/27/18 at 04:00 Active Scripts Active Reported Coricidin Hbp Cough & Cold Tab (Dextromethorphan Hbr/Chlor-Mal) 1 Each Tablet 1 Each PO Aspirin 81 Mg Tab.chew 1 Tab PO HS Multivitamins (Multivitamin) 1 Each Tablet 1 Tab PO DAILY Fish Oil 1,000 Mg Capsule ([place]-3 Fatty Acids/Fish Oil) 1 Each Capsule 1 Each PO HS Losartan Potassium 100 Mg Tablet 100 Mg PO BID Losartan Potassium 50 Mg Tablet 50 Mg PO DAILY Zoloft (Sertraline Hcl) 100 Mg Tablet 1 Tab PO BID Zoloft (Sertraline Hcl) 100 Mg Tablet 100 Mg PO BID Finasteride 5 Mg Tablet 5 Mg PO HS Doxazosin Mesylate 4 Mg Tablet 4 Mg PO HS Namenda (Memantine Hcl) 10 Mg Tablet 10 Mg PO BID Donepezil Hcl 10 Mg Tablet 10 Mg PO HS Bystolic (Nebivolol) 5 Mg Tablet 5 Mg PO DAILY Glyburide 5 Mg Tablet 1 Tab PO BID Metformin Hcl 500 Mg Tablet 500 Mg PO BIDWMEALS Lisinopril 40 Mg Tablet 40 Mg PO BID Lorazepam 1 Mg Tablet 1 Tab PO TID Vitals/I & O Vital Sign - Last 24 Hours 09/28/18 09/28/18 09/28/18 09/28/18 15:15 19:00 19:39 21:20 Temp 98.8 97.4 98.8 97.4 Pulse 58 98 80 Resp 18 18 B/P (MAP) 169/88 (115) 99/59 (72) 155/87 Pulse Ox 90 100 O2 Delivery Room Air Room Air Room Air 09/28/18 09/28/18 09/28/18 09/29/18 21:21 21:22 23:00 03:00 Temp 97.1 97.7 97.1 97.7 Pulse 80 80 105 88 Resp 18 18 B/P (MAP) 155/87 155/87 144/76 (98) 119/64 (82) Pulse Ox 94 98 O2 Delivery Room Air Room Air 09/29/18 09/29/18 09/29/18 09/29/18 07:00 08:00 09:25 11:00 Temp 97.5 97.8 98.4 97.5 97.8 98.4 Pulse 43 43 73 Resp 18 18 17 B/P (MAP) 95/41 (59) 129/66 (87) 143/80 (101) Pulse Ox 95 98 95 O2 Delivery Room Air Room Air Room Air Room Air Intake and Output 09/28/18 09/28/18 09/29/18 15:01 23:01 07:01 Intake Total 460 ml 740 ml 300 ml Output Total 1 ml Balance 460 ml 739 ml 300 ml BERNARDO TAYLOR MD Sep 29, 2018 11:43
[2018-09-29 11:48] VITALS: BP 143/80
--- NOTE | 2018-09-29 12:40 | NUR ---
Discharge Note: LINETTE CARDOZA Discharge instructions and discharge home medications [place] [facility]. All questions have been answered and understanding verbalized. Discontinued lines and drains: peripheral line discontinued. [place] [facility] [place] [facility] [facility].
== END 2018-09-29 12:30 | DRG 308 ==
LOC: ER 11:41 → 5 NORTH 19:50
PROVIDERS: ADMIT Internal Medicine; ATTEND Internal Medicine
DX: I48.92 Unspecified atrial flutter (principal); G93.41 Metabolic encephalopathy; F02.80 Dementia in other diseases classified elsewhere, unspecified severity, without behavioral disturbance, psychotic disturbance, mood disturbance, and anxiety; E11.9 Type 2 diabetes mellitus without complications; D64.9 Anemia, unspecified; I48.0 Paroxysmal atrial fibrillation; G30.9 Alzheimer's disease, unspecified; E78.00 Pure hypercholesterolemia, unspecified; K21.9 Gastro-esophageal reflux disease without esophagitis; I10 Essential (primary) hypertension; W18.39XA Other fall on same level, initial encounter; Z66 Do not resuscitate; E78.5 Hyperlipidemia, unspecified; I49.3 Ventricular premature depolarization; Z88.5 Allergy status to narcotic agent; Z82.0 Family history of epilepsy and other diseases of the nervous system; Z82.49 Family history of ischemic heart disease and other diseases of the circulatory system; Z83.3 Family history of diabetes mellitus; Y93.89 Activity, other specified; Y92.89 Other specified places as the place of occurrence of the external cause; Y99.8 Other external cause status
CPT/HCPCS: 36415; 70450; 72125; 72192; 80048; 80053; 80076; 81001; 82962; 83690; 83880; 84484; 85007; 85025; 93005; J1815; J2060; J2405; J7030; 97116; 97530; 97535; 99285-25; G0378